=== PATIENT | male | born 2000 | race Caucasian/White ===

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

== ENCOUNTER 2019-05-20 00:58 | Emergency (ER) | payer BC ==
[2019-05-20] MEDS ORDERED: LIDOCAINE 1% W/EPI 1:100,000 MDV 50 ML VIAL ONE (01:37)
[2019-05-20] MEDS ORDERED: LIDOCAINE 1% MPF 5 ML VIAL ONE (01:57)
[2019-05-20] MEDS ORDERED: SMZ./TMP. 800/160 MG TABLET ONE (02:30)
--- NOTE | 2019-05-20 02:38 | ER ---
Nurse's Notes [facility] Name: Jevon Wilkins Age: 19 yrs Sex: Male : 2000 Arrival Date: 05/20/2019 Time: 01:01 Bed 27 Private MD: Diagnosis: Cutaneous abscess of head [any part, except face]-behind right ear Presentation: 05/20 01:10 Presenting complaint: Patient states: I have a bump behind my right ear that has been jb4 there for a couple months. I started noticing that it was becoming painful and getting larger over the past 2 days. Transition of care: patient was not received from another setting of care. Onset of symptoms was May 17, 2019. Risk Assessment: Do you want to hurt yourself or someone else? Patient reports no desire to harm self or others. Initial Sepsis Screen: Does the patient meet any 2 criteria? No. Patient's initial sepsis screen is negative. Does the patient have a suspected source of infection? No. Patient's initial sepsis screen is negative. Care prior to arrival: None. 01:10 Method Of Arrival: Ambulatory jb4 01:10 Acuity: KATIE 4 jb4 Historical: - Allergies: 01:12 No Known Allergies; jb4 - Home Meds: 01:12 None [Active]; jb4 - PMHx: 01:12 Depression; jb4 - PSHx: 01:12 None; jb4 - Immunization history:: Adult Immunizations up to date. - Social history:: Smoking status: Patient uses tobacco products, smokes one pack cigarettes per day. Patient uses alcohol, occasionally. - Ebola Screening: : No symptoms or risks identified at this time. Screenin:40 Abuse screen: Denies threats or abuse. Nutritional screening: No deficits noted. lc1 Tuberculosis screening: No symptoms or risk factors identified. Fall Risk None identified. Assessment: 02:40 General: Appears in no apparent distress. Behavior is calm, cooperative. Pain: lc1 Complains of pain in right ear. Neuro: No deficits noted. Cardiovascular: Denies chest pain, fatigue, shortness of breath. Respiratory: No deficits noted. GI: No signs and/or symptoms were reported involving the gastrointestinal system. : No signs and/or symptoms were reported regarding the genitourinary system. EENT: Reports area behind right ear with knot that has been there for a couple months, just recently started getting inflammed and painful . Derm: Abscess located on behind right ear. Musculoskeletal: No signs and/or symptoms reported regarding the musculoskeletal system. Vital Signs: 01:12 BP 149 / 79; Pulse 84; Resp 18; Temp 98.2(O); Pulse Ox 100% on R/A; Weight 68.04 kg jb4 (R); Height 5 ft. 8 in. (172.72 cm) (R); Pain 10/10; 01:45 BP 124 / 79; Pulse 76; Resp 18; Pulse Ox 100% on R/A; lc1 02:40 BP 149 / 83; Pulse 79; Resp 18; Pulse Ox 100% on R/A; lc1 01:12 Body Mass Index 22.81 (68.04 kg, 172.72 cm) jb4 ED Course: 01:01 Patient arrived in ED. cl3 01:05 Rubén Gaona PA is PHCP. cp 01:06 Jyadon Riggins MD is Attending Physician. cp 01:06 Robel Flores RN is Primary Nurse. tr5 01:11 Triage completed. jb4 01:12 Arm band placed on right wrist. jb4 02:00 Assist provider with I \T\ D: Performed by Rubén ATKINS Dressing with bandaid placed by phani Blandon. 02:40 Patient has correct armband on for positive identification. Bed in low position. Call 1 light in reach. 02:40 Patient did not have IV access during this emergency room visit. 1 Administered Medications: 01:50 Drug: Lidocaine (1 %) 1 application {Note: Admminstere by ER provider..} Volume: 5 ml; jb4 Route: Infiltration; 02:47 Follow up: Response: No adverse reaction 1 02:28 Not Given (Physician Discretion): Lidocaine-Epinephrine -1%: (1:100,000) 5 ml 20 ml jb4 Infiltration once; to bedside 02:34 Drug: Bactrim (160 mg-800 mg (DS) 1 tablet Route: PO; jb4 02:47 Follow up: Response: No adverse reaction 1 Outcome: 02:00 Discharged to home ambulatory. 1 02:00 Condition: good 02:00 Discharge instructions given to patient, Instructed on discharge instructions, medication usage, Demonstrated understanding of instructions, follow-up care, medications, wound care, Prescriptions given X 3. 02:37 Discharge ordered by MD. landaverde 02:51 Patient left the ED. lc1 Signatures: Jackie Payton Corey, PA PA cp Bryson, James RN RN jb4 Robel Flores RN RN tr5 Yuridia Raya cl3 Corrections: (The following items were deleted from the chart) 02:51 02:00 Assist provider with I \T\ D: Performed by Rubén ATKINS Dressing with bandaid lc1 placed by Barber jeronimo
--- NOTE | 2019-05-20 02:38 | EDPHYS ---
Physician Documentation [facility] Name: Jevon Wilkins Age: 19 yrs Sex: Male : 2000 Arrival Date: 05/20/2019 Time: 01:01 Bed 27 Private MD: ED Physician Jaydon Riggins HPI: 05/20 01:30 This 19 yrs old Male presents to ER via Ambulatory with complaints of Ear cp Pain. 01:30 The patient presents with pain, swelling, tenderness. The complaints affect the cp posterior aspect right ear. 01:30 Onset: The symptoms/episode began/occurred gradually, and became worse 2 day(s) ago. cp Historical: - Allergies: 01:12 No Known Allergies; jb4 - Home Meds: 01:12 None [Active]; jb4 - PMHx: 01:12 Depression; jb4 - PSHx: 01:12 None; jb4 - Immunization history:: Adult Immunizations up to date. - Social history:: Smoking status: Patient uses tobacco products, smokes one pack cigarettes per day. Patient uses alcohol, occasionally. - Ebola Screening: : No symptoms or risks identified at this time. ROS: 01:35 Constitutional: Negative for body aches, chills, fever, poor PO intake. cp 01:35 Eyes: Negative for injury, pain, redness, and discharge. cp 01:35 ENT: Positive for ear pain, Negative for drainage from ear(s), sore throat, difficulty swallowing, difficulty handling secretions. 01:35 Respiratory: Negative for cough. 01:35 Abdomen/GI: Negative for abdominal pain. 01:35 Skin: Positive for swelling, of the behind right ear. 01:35 Neuro: Negative for altered mental status, headache, weakness. 01:35 All other systems are negative. Exam: 01:45 Constitutional: The patient appears in no acute distress, alert, awake, well developed, cp well nourished. 01:45 Head/Face: Normocephalic, atraumatic. cp 01:45 Eyes: Periorbital structures: appear normal, Conjunctiva: normal, no exudate, no injection, Lids and lashes: appear normal, bilaterally. 01:45 ENT: External ear(s): abscess, that is small, of the behind right ear, erythema, of the pinna of right ear, Ear canal(s): are normal, clear, TM's: dullness, bilaterally, Examination of the other ear shows no obvious abnormality, Nose: is normal, Mouth: is normal, Posterior pharynx: is normal, airway is patent, no erythema, no exudate. 01:45 Neck: ROM/movement: is normal, is supple, without pain, no range of motions limitations, no nuchal rigidity. 01:45 Chest/axilla: Inspection: normal, Palpation: is normal, no crepitus, no tenderness. 01:45 Cardiovascular: Rate: normal. 01:45 Respiratory: the patient does not display signs of respiratory distress, Respirations: normal, no use of accessory muscles, no retractions, no splinting, no tachypnea. 01:45 Abdomen/GI: Inspection: abdomen appears normal. Vital Signs: 01:12 BP 149 / 79; Pulse 84; Resp 18; Temp 98.2(O); Pulse Ox 100% on R/A; Weight 68.04 kg jb4 (R); Height 5 ft. 8 in. (172.72 cm) (R); Pain 10/10; 01:45 BP 124 / 79; Pulse 76; Resp 18; Pulse Ox 100% on R/A; lc1 02:40 BP 149 / 83; Pulse 79; Resp 18; Pulse Ox 100% on R/A; lc1 01:12 Body Mass Index 22.81 (68.04 kg, 172.72 cm) jb4 Procedures: 02:30 I \T\ D: Incision and drainage was performed for an abscess of the behind right ear cp Prepped with Betadine, Incised with #11 blade. Drained moderate amount purulent fluid. Packed with iodoform gauze, Dressing: sterile 4x4 gauze, the patient tolerated the procedure well. MDM: 01:15 Patient medically screened. cp 02:00 Differential diagnosis: abscess, cellulitis. cp 02:36 Data reviewed: vital signs, nurses notes, and as a result, I will discharge patient. cp 02:36 Counseling: I had a detailed discussion with the patient and/or guardian regarding: the cp historical points, exam findings, and any diagnostic results supporting the discharge/admit diagnosis, the need for outpatient follow up, a family practitioner, to return to the emergency department if symptoms worsen or persist or if there are any questions or concerns that arise at home. Response to treatment: the patient's symptoms have markedly improved after treatment, and as a result, I will discharge patient. 05/20 01:29 Order name: I\T\D Setup; Complete Time: 01:50 cp 05/20 02:20 Order name: Wound dressing; Complete Time: 02:34 cp Administered Medications: 01:50 Drug: Lidocaine (1 %) 1 application {Note: Admminstere by ER provider..} Volume: 5 ml; jb4 Route: Infiltration; 02:47 Follow up: Response: No adverse reaction lc1 02:28 Not Given (Physician Discretion): Lidocaine-Epinephrine -1%: (1:100,000) 5 ml 20 ml jb4 Infiltration once; to bedside 02:34 Drug: Bactrim (160 mg-800 mg (DS) 1 tablet Route: PO; jb4 02:47 Follow up: Response: No adverse reaction lc1 Disposition: 03:22 Co-signature as Attending Physician, Jaydon Riggins MD. rn Disposition: 05/20/19 02:37 Discharged to Home. Impression: Cutaneous abscess of head [any part, except face] - behind right ear. - Condition is Stable. - Discharge Instructions: Skin Abscess, Incision and Drainage. - Prescriptions for Ibuprofen 800 mg Oral Tablet - take 1 tablet by ORAL route every 8 hours As needed take with food; 30 tablet. Tramadol 50 mg Oral Tablet - take 1 tablet by ORAL route every 8 hours as needed; 12 tablet. Bactrim DS 800- 160 mg Oral Tablet - take 1 tablet by ORAL route every 12 hours for 10 days; 20 tablet. - Medication Reconciliation Form, Thank You Letter, Antibiotic Education, Prescription Opioid Use form. - Follow up: Private Physician; When: 48 Hours; Reason: Wound Recheck. - Problem is new. - Symptoms have improved. Signatures: Jaydon Riggins MD MD rn Calhoun, Lisa lc1 Rubén Gaona PA PA cp Bryson, James, RN RN jb4 Corrections: (The following items were deleted from the chart) 02:51 02:37 05/20/2019 02:37 Discharged to Home. Impression: Cutaneous abscess of head [any lc1 part, except face] - behind right ear. Condition is Stable. Forms are Medication Reconciliation Form, Thank You Letter, Antibiotic Education, Prescription Opioid Use. Follow up: Private Physician; When: 48 Hours; Reason: Wound Recheck. Problem is new. Symptoms have improved. cp
[2019-05-20 02:56] VITALS: TEMP 98.2; O2SAT 100
[2019-05-20 02:58] VITALS: BP 149/83
== END 2019-05-20 02:51 | disposition home or self-care (01) ==
LOC: ER 00:58
PROC: 0J910ZZ Drainage of Face Subcutaneous Tissue and Fascia, Open Approach (ICD-10-PCS; principal; 2019-05-20)
DX: L02.811 Cutaneous abscess of head [any part, except face] (principal); F17.210 Nicotine dependence, cigarettes, uncomplicated
CPT/HCPCS: 99283

== ENCOUNTER 2019-06-28 00:44 | Emergency (ER) | payer BC ==
[2019-06-28] MEDS ORDERED: CLINDAMYCIN HCL 150 MG CAP ONE (01:16)
[2019-06-28] MEDS ORDERED: LIDOCAINE JELLY 2%- 5 ML TUBE ONE (01:16)
--- NOTE | 2019-06-28 02:01 | EDPHYS ---
Physician Documentation [facility] Name: Jevon Wilkins Age: 19 yrs Sex: Male : 2000 Arrival Date: 06/28/2019 Time: 00:47 Bed 14 Private MD: ED Physician Devendra Lopez HPI: 06/28 02:06 This 19 yrs old Male presents to ER via Ambulatory with complaints of Bump snw behind Ear. 02:06 Onset: The symptoms/episode began/occurred gradually. Associated signs and symptoms: snw Pertinent positives: tenderness. The patient has experienced a previous episode. It is unknown whether or not the patient has recently seen a physician. Historical: - Allergies: 00:57 No Known Allergies; ss - Home Meds: 00:57 None [Active]; ss - PMHx: 00:57 Depression; ss - PSHx: 00:57 None; ss - Immunization history:: Adult Immunizations up to date. - Social history:: Smoking status: Patient uses tobacco products, smokes one pack cigarettes per day. - Ebola Screening: : Patient denies exposure to infectious person Patient denies travel to an Ebola-affected area in the 21 days before illness onset. ROS: 02:03 Constitutional: Negative for fever, chills, and weight loss, Eyes: Negative for injury, snw pain, redness, and discharge, Neck: Negative for injury, pain, and swelling, Cardiovascular: Negative for chest pain, palpitations, and edema, Respiratory: Negative for shortness of breath, cough, wheezing, and pleuritic chest pain, Abdomen/GI: Negative for abdominal pain, nausea, vomiting, diarrhea, and constipation, Back: Negative for injury and pain, : Negative for injury, bleeding, discharge, and swelling, MS/Extremity: Negative for injury and deformity, Skin: Negative for injury, rash, and discoloration, Neuro: Negative for headache, weakness, numbness, tingling, and seizure, Psych: Negative for depression, anxiety, suicide ideation, homicidal ideation, and hallucinations. 02:03 ENT: Positive for postauricular swelling to right post auricular area - I\T\D last month. Exam: 02:01 Constitutional: This is a well developed, well nourished patient who is awake, alert, snw and in no acute distress. Head/Face: Normocephalic, atraumatic. Eyes: Pupils equal round and reactive to light, extra-ocular motions intact. Lids and lashes normal. Conjunctiva and sclera are non-icteric and not injected. Cornea within normal limits. Periorbital areas with no swelling, redness, or edema. Neck: Trachea midline, no thyromegaly or masses palpated, and no cervical lymphadenopathy. Supple, full range of motion without nuchal rigidity, or vertebral point tenderness. No Meningismus. Chest/axilla: Normal chest wall appearance and motion. Nontender with no deformity. No lesions are appreciated. Cardiovascular: Regular rate and rhythm with a normal S1 and S2. No gallops, murmurs, or rubs. Normal PMI, no JVD. No pulse deficits. Respiratory: Lungs have equal breath sounds bilaterally, clear to auscultation and percussion. No rales, rhonchi or wheezes noted. No increased work of breathing, no retractions or nasal flaring. Abdomen/GI: Soft, non-tender, with normal bowel sounds. No distension or tympany. No guarding or rebound. No evidence of tenderness throughout. Back: No spinal tenderness. No costovertebral tenderness. Full range of motion. Skin: Warm, dry with normal turgor. Normal color with no rashes, no lesions, and no evidence of cellulitis. MS/ Extremity: Pulses equal, no cyanosis. Neurovascular intact. Full, normal range of motion. Neuro: Awake and alert, GCS 15, oriented to person, place, time, and situation. Cranial nerves II-XII grossly intact. Motor strength 5/5 in all extremities. Sensory grossly intact. Cerebellar exam normal. Normal gait. Psych: Awake, alert, with orientation to person, place and time. Behavior, mood, and affect are within normal limits. 02:01 ENT: External ear(s): pain with movement, swelling, that is moderate, right postauricular area, TM's: are normal, Nose: is normal, Mouth: is normal. Vital Signs: 00:57 BP 133 / 77; Pulse 77; Resp 16; Temp 97.8(O); Pulse Ox 100% on R/A; Weight 68.04 kg; ss Height 5 ft. 9 in. (175.26 cm); Pain 10/10; 02:23 BP 112 / 78; Pulse 86; Resp 16; Pulse Ox 97% on R/A; jb4 00:57 Body Mass Index 22.15 (68.04 kg, 175.26 cm) ss MDM: 00:59 Patient medically screened. snw 01:59 Data reviewed: vital signs, nurses notes. Data interpreted: Pulse oximetry: on room air snw is 100 %. Interpretation: normal. Counseling: I had a detailed discussion with the patient and/or guardian regarding: the historical points, exam findings, and any diagnostic results supporting the discharge/admit diagnosis, the presence of at least one elevated blood pressure reading (>120/80) during this emergency department visit, the need for outpatient follow up, to return to the emergency department if symptoms worsen or persist or if there are any questions or concerns that arise at home. Response to treatment: the patient's symptoms have markedly improved after treatment. Special discussion: Based on the history and exam findings, there is no indication for further emergent testing or inpatient evaluation. I discussed with the patient/guardian the need to see the ENT specialist for further evaluation of the symptoms. I discussed with the patient/guardian the need to see the primary care provider for further evaluation of the symptoms. Administered Medications: 01:20 Drug: Clindamycin 300 mg Route: PO; jb4 02:11 Follow up: Response: No adverse reaction jb4 01:21 Drug: Lidocaine Gel 2 % 1 application Route: Mucous Membrane; jb4 02:12 Follow up: Response: No adverse reaction jb4 02:22 Drug: [place] 5 mg-325 mg 1 tabs {Note: Rass score of 0.} Route: PO; jb4 02:22 Follow up: Response: Medication administered at discharge. jb4 Disposition: 06:35 Co-signature as Attending Physician, Devendra Lopez MD I agree with the assessment and tw4 plan of care. Disposition: 06/28/19 01:59 Discharged to Home. Impression: Cutaneous abscess of other sites - post auricular area. - Condition is Stable. - Discharge Instructions: Skin Abscess, Heat Therapy. - Prescriptions for Clindamycin HCl 300 mg Oral Capsule - take 1 capsule by ORAL route every 6 hours for 10 days; 40 capsule. Mobic 7.5 mg Oral Tablet - take 1 tablet by ORAL route once daily take with food; 20 tablet. - Medication Reconciliation Form, Thank You Letter, Antibiotic Education, Prescription Opioid Use form. - Follow up: Private Physician; When: 2 - 3 days; Reason: Recheck today's complaints, Continuance of care, Re-evaluation by your physician. Follow up: Emergency Department; When: As needed; Reason: Worsening of condition. Signatures: Patt Roper, LAURENCE-C DIE OPERATOR-Csnw Zoey Dodson RN RN ss Ge Tripp RN RN jb4 Devendra Lopez MD MD tw4 Corrections: (The following items were deleted from the chart) 02:25 01:59 06/28/2019 01:59 Discharged to Home. Impression: Cutaneous abscess of other sites jb4 - post auricular area. Condition is Stable. Discharge Instructions: Skin Abscess, Heat Therapy. Prescriptions for Clindamycin HCl 300 mg Oral Capsule - take 1 capsule by ORAL route every 6 hours for 10 days; 40 capsule, Mobic 7.5 mg Oral Tablet - take 1 tablet by ORAL route once daily take with food; 20 tablet. and Forms are Medication Reconciliation Form, Thank You Letter, Antibiotic Education, Prescription Opioid Use. Follow up: Private Physician; When: 2 - 3 days; Reason: Recheck today's complaints, Continuance of care, Re-evaluation by your physician. Follow up: Emergency Department; When: As needed; Reason: Worsening of condition. snw
--- NOTE | 2019-06-28 02:01 | ER ---
Nurse's Notes [facility] Name: Jevon Wilkins Age: 19 yrs Sex: Male : 2000 Arrival Date: 06/28/2019 Time: 00:47 Bed 14 Private MD: Diagnosis: Cutaneous abscess of other sites-post auricular area Presentation: 06/28 00:54 Presenting complaint: Patient states: bump behind R ear x 2 days. Patient reports he ss came to ER a month ago for the same thing, had the abscess drained, but it came back. Denies fever. Transition of care: patient was not received from another setting of care. Onset of symptoms was June 26, 2019. Risk Assessment: Do you want to hurt yourself or someone else? Patient reports no desire to harm self or others. Initial Sepsis Screen: Does the patient meet any 2 criteria? No. Patient's initial sepsis screen is negative. Does the patient have a suspected source of infection? Yes: Skin breakdown/wound. Care prior to arrival: None. 00:54 Method Of Arrival: Ambulatory ss 00:54 Acuity: KATIE 4 ss Historical: - Allergies: 00:57 No Known Allergies; ss - Home Meds: 00:57 None [Active]; ss - PMHx: 00:57 Depression; ss - PSHx: 00:57 None; ss - Immunization history:: Adult Immunizations up to date. - Social history:: Smoking status: Patient uses tobacco products, smokes one pack cigarettes per day. - Ebola Screening: : Patient denies exposure to infectious person Patient denies travel to an Ebola-affected area in the 21 days before illness onset. Screenin:59 Abuse screen: Denies threats or abuse. Denies injuries from another. Nutritional ss screening: No deficits noted. Tuberculosis screening: Never had TB. Fall Risk None identified. Assessment: 00:58 General: Appears in no apparent distress. comfortable, Behavior is calm, cooperative, ss Denies fever, feeling ill, fatigue, chills. Pain: Complains of pain in right mastoid area Pain currently is 10 out of 10 on a pain scale. Quality of pain is described as tender, Pain began 2-3 days ago. Is continuous, Aggravated by palpation. Neuro: Level of Consciousness is awake, alert, obeys commands, Oriented to person, place, time, situation. Cardiovascular: Capillary refill < 3 seconds is brisk in bilateral fingers. Respiratory: Airway is patent Respiratory effort is even, unlabored, Respiratory pattern is regular, symmetrical. GI: No signs and/or symptoms were reported involving the gastrointestinal system. : No signs and/or symptoms were reported regarding the genitourinary system. EENT: Oral mucosa is moist. Derm: Skin is intact, is healthy with good turgor, Skin is dry, Skin is pink, warm \T\ dry. normal, Abscess located on behind R ear is nickel sized, has no drainage, is raised. Musculoskeletal: Circulation, motion, and sensation intact. Range of motion: intact in all extremities. 02:23 Reassessment: Patient appears in no apparent distress at this time. Patient and/or jb4 family updated on plan of care and expected duration. Pain level reassessed. Patient is alert, oriented x 3, equal unlabored respirations, skin warm/dry/pink. PT reports not having a PCP, given a list of PCP's in the area. Verbalized understanding of d/c and follow up instructions, ambulated out of the ED with significant other with steady gait. Vital Signs: 00:57 BP 133 / 77; Pulse 77; Resp 16; Temp 97.8(O); Pulse Ox 100% on R/A; Weight 68.04 kg; ss Height 5 ft. 9 in. (175.26 cm); Pain 10/10; 02:23 BP 112 / 78; Pulse 86; Resp 16; Pulse Ox 97% on R/A; jb4 00:57 Body Mass Index 22.15 (68.04 kg, 175.26 cm) ED Course: 00:47 Patient arrived in ED. jg7 00:54 Zoey Dodson, LAMONT is Primary Nurse. ss 00:55 Triage completed. ss 00:57 aPtt Roper FNP-C is PHCP. snw 00:57 Devendra Lopez MD is Attending Physician. snw 00:57 Arm band placed on right wrist. ss 00:59 Patient has correct armband on for positive identification. Bed in low position. Call light in reach. 02:23 No provider procedures requiring assistance completed. Patient did not have IV access jb4 during this emergency room visit. Administered Medications: 01:20 Drug: Clindamycin 300 mg Route: PO; jb4 02:11 Follow up: Response: No adverse reaction jb4 01:21 Drug: Lidocaine Gel 2 % 1 application Route: Mucous Membrane; jb4 02:12 Follow up: Response: No adverse reaction jb4 02:22 Drug: [place] 5 mg-325 mg 1 tabs {Note: Rass score of 0.} Route: PO; jb4 02:22 Follow up: Response: Medication administered at discharge. jb4 Outcome: 01:59 Discharge ordered by . ron 02:23 Discharged to home ambulatory, with significant other. jb4 02:23 Condition: stable 02:23 Discharge instructions given to patient, significant other, Instructed on discharge instructions, follow up and referral plans. medication usage, Demonstrated understanding of instructions, follow-up care, medications, Prescriptions given X 2. 02:25 Patient left the ED. jb4 Signatures: Patt Roper, GENERAL MANAGER LAND DEPARTMENT-C GENERAL MANAGER LAND DEPARTMENT-Csnw Zoey Dodson RN RN ss Bryson, James, RN RN jb4 Milena Bonds jg7
[2019-06-28] MEDS ORDERED: HYDROCODONE/APAP 5/325 MG TAB ONE (02:16)
[2019-06-28 02:30] VITALS: TEMP 97.8
[2019-06-28 02:31] VITALS: BP 112/78; O2SAT 97
== END 2019-06-28 02:25 | disposition home or self-care (01) ==
LOC: ER 00:44
DX: H60.01 Abscess of right external ear (principal); F17.210 Nicotine dependence, cigarettes, uncomplicated
CPT/HCPCS: 99283

== ENCOUNTER 2019-09-24 06:00 | Emergency (ER) | payer BC ==
[2019-09-24] MEDS ORDERED: TETANUS & DIPHTHERIA TOX,ADULT 0.5 ML VIAL ONE (06:18)
[2019-09-24] MEDS ORDERED: LIDOCAINE 1% MPF 5 ML VIAL ONE (06:19)
--- NOTE | 2019-09-24 07:19 | RAD REPORT ---
EXAM DESCRIPTION: RAD - Hand Right 3 View - 09/24/2019 7:10 am CLINICAL HISTORY: Right hand pain status post injury FINDINGS: No fracture or dislocation is seen. Laceration involves the first web space and soft tissues adjacent to the second proximal phalanx.. A bandage has been placed which obscures detection of foreign body.
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
[2019-09-24 07:48] VITALS: BP 145/71; TEMP 98.4; O2SAT 99
== END 2019-09-24 07:42 | disposition home or self-care (01) ==
LOC: ER 06:00
PROC: 0JQJ0ZZ Repair Right Hand Subcutaneous Tissue and Fascia, Open Approach (ICD-10-PCS; principal; 2019-09-24)
DX: S61.411A Laceration without foreign body of right hand, initial encounter (principal); Y04.2XXA Assault by strike against or bumped into by another person, initial encounter; Y93.89 Activity, other specified; Y92.9 Unspecified place or not applicable
CPT/HCPCS: 90714; 99284

== ENCOUNTER 2019-12-12 17:43 | Emergency (ER) | payer BC ==
[2019-12-12 18:27] LABS: Absolute Lymphocytes (CBC) 1.4 K/uL (0.7-4.9); Basophils % 0.3 % (0-1.3); Hematocrit 50.5 % (39.6-49.0); Lymphocytes % 11.6 % (15.3-44.8); MPV 10.4 fL (7.6-11.3); RBC Red Blood Cell Count 5.74 M/uL (4.33-5.43)
[2019-12-12] MEDS ORDERED: NA CHLORIDE 0.9% 1,000 ML ONE (18:28)
[2019-12-12 18:34] LABS: Protime INR 1.03
[2019-12-12 19:00] LABS: ALT/SGPT 46 U/L (12-78); AST/SGOT 26 U/L (15-37); Albumin 4.4 g/dL (3.4-5.0); Alkaline Phosphatase 99 U/L (45-117); BUN Blood Urea Nitrogen 11 mg/dL (7-18); Bicarbonate 26 mmol/L (21-32); Bilirubin Direct 0.2 mg/dL (0-0.2); Glucose Level 93 mg/dL (74-106); Potassium 3.9 mmol/L (3.5-5.1); Protein, Total 7.8 g/dL (6.4-8.2); Sodium Level 140 mmol/L (136-145)
[2019-12-12 19:20] LABS: Urine Blood NEGATIVE (NEG); Urine Glucose NEGATIVE (NEG); Urine Protein 2+ (NEG); Urine pH 8.5 (5.0-7.0)
[2019-12-12 19:37] LABS: Barbiturates NEGATIVE (NEGATIVE); Benzodiazepines NEGATIVE (NEGATIVE); Cocaine NEGATIVE (NEGATIVE); METHAMPHETAM NEGATIVE (NEGATIVE); Methadone NEGATIVE (NEGATIVE); Opiates NEGATIVE (NEGATIVE); Phencyclidine NEGATIVE (NEGATIVE); THC Cannibis POSITIVE (NEGATIVE)
--- NOTE | 2019-12-12 19:57 | ER ---
Nurse's Notes [facility] Name: Jevon Wilkins Age: 19 yrs Sex: Male : 2000 Arrival Date: 12/12/2019 Time: 17:48 Bed 16 Private MD: Diagnosis: Vomiting, unspecified;Cannabis abuse Presentation: 12/11 17:59 Chief complaint: Patient states: Awoke with N/V/D today. Unable to hold down fluids. ll1 States this doesn't feel like his normal hang overs. Coronavirus screen: Proceed with normal triage. Patient denies a cough. Patient denies shortness of breath or difficulty breathing. Patient denies measured and/or subjective temperature greater than 100.4F prior to today's visit. Patient denies travel on a cruise ship or to a country the [facility] currently lists as an affected area. Patient denies contact with known and/or suspected case of COVID-19. Ebola Screen: Patient denies travel to an Ebola-affected area in the 21 days before illness onset. Initial Sepsis Screen: Does the patient meet any 2 criteria? No. Patient's initial sepsis screen is negative. Does the patient have a suspected source of infection? No. Patient's initial sepsis screen is negative. Risk Assessment: Do you want to hurt yourself or someone else? Patient reports no desire to harm self or others. Onset of symptoms was December 12, 2019. 17:59 Method Of Arrival: Ambulatory [facility] 17:59 Acuity: KATIE 3 ll1 Historical: - Allergies: 18:02 No Known Allergies; ll1 - PMHx: 18:02 Depression; ll1 - PSHx: 18:02 None; ll1 - Immunization history:: Adult Immunizations unknown. - Social history:: Smoking status: Patient reports the use of cigarette tobacco products, smokes one pack cigarettes per day. Patient uses alcohol, only on a social basis. street drugs, alprazolam. Screenin:26 Abuse screen: Denies threats or abuse. Denies injuries from another. Nutritional jl7 screening: No deficits noted. Tuberculosis screening: No symptoms or risk factors identified. Fall Risk IV access (20 points). Total [place] Fall Scale indicates No Risk (0-24 pts). Assessment: 18:10 General: Appears in no apparent distress. uncomfortable, Behavior is calm, cooperative, jl7 appropriate for age. Pain: Denies pain. Neuro: Level of Consciousness is awake, alert, obeys commands, Oriented to person, place, time, situation. Cardiovascular: Patient's skin is warm and dry. Respiratory: Airway is patent Respiratory effort is even, unlabored, Respiratory pattern is regular, symmetrical. GI: Abdomen is flat, non-distended, Reports N/V this morning, symptoms have resolved. Derm: Skin is pink, warm \T\ dry. 18:27 Reassessment: Pt unable to provide urine sample at this time, VO for 1000 mL NS IV. jl7 19:15 Reassessment: Patient appears in no apparent distress at this time. Patient and/or wh family updated on plan of care and expected duration. Pain level reassessed. Patient is alert, oriented x 3, equal unlabored respirations, skin warm/dry/pink. 20:00 Reassessment: Patient appears in no apparent distress at this time. Patient and/or vc family updated on plan of care and expected duration. Pain level reassessed. Patient is alert, oriented x 3, equal unlabored respirations, skin warm/dry/pink. Patient states feeling better. Patient states symptoms have improved. Vital Signs: 17:59 BP 149 / 63; Pulse 83; Resp 17; Temp 97.8; Pulse Ox 98% ; Pain 0/10; ll1 19:30 BP 140 / 62; Pulse 70; Resp 18; Pulse Ox 98% on R/A; vc ED Course: 17:48 Patient arrived in ED. am2 17:54 Kathleen Wilder RN is Primary Nurse. jl7 17:56 Robbin Marcus NP is PHCP. pm1 17:56 Jaydon Riggins MD is Attending Physician. pm1 18:01 Triage completed. ll1 18:03 Arm band placed on Patient placed in an exam room, on a stretcher. ll1 18:16 Initial lab(s) drawn, by me, sent to lab. Inserted saline lock: 20 gauge in left jp3 antecubital area, using aseptic technique. Blood collected. Patient maintains SpO2 saturation greater than 95% on room air. 18:26 Patient has correct armband on for positive identification. Bed in low position. Call jl7 light in reach. Side rails up X 1. Pulse ox on. NIBP on. 18:32 EKG done, by ED staff, reviewed by Robbin Marcus BI SPECIALIST. jp3 19:10 Urine collected: clean catch specimen, clear, shira colored, Legal drug screen obtained jp3 per protocol. 20:17 No provider procedures requiring assistance completed. IV discontinued, intact, vc bleeding controlled, No redness/swelling at site. Pressure dressing applied. Administered Medications: 18:30 Drug: NS 0.9% 1000 ml Route: IV; Rate: 1 bolus; Site: left antecubital; jl7 19:30 Follow up: IV Status: Completed infusion; IV Intake: 1000ml vc Intake: 19:30 IV: 1000ml; Total: 1000ml. vc Outcome: 19:57 Discharge ordered by MD. pm1 20:17 Discharged to home ambulatory. vc 20:17 Condition: improved 20:17 Discharge instructions given to patient, Instructed on discharge instructions, follow up and referral plans. Demonstrated understanding of instructions, follow-up care, medications, Prescriptions given X 1. 20:18 Patient left the ED. vc Signatures: Robbin Marcus, INE[employer] BI SPECIALIST pm1 Kathleen Wilder RN RN jl7 Delilah Purvis amShirley Austin Jacob jp3 Holli Blackman RN RN vc Lewis, Lynsay, RN RN ll1
--- NOTE | 2019-12-12 19:57 | EDPHYS ---
Physician Documentation [facility] Name: Jevon Wilkins Age: 19 yrs Sex: Male : 2000 Arrival Date: 12/12/2019 Time: 17:48 Bed 16 Private MD: ED Physician Jaydon Riggins HPI: 12/11 18:09 This 19 yrs old Male presents to ER via Ambulatory with complaints of pm1 Vomiting, shaking. 18:09 The patient presents to the emergency department with nausea, vomiting. Onset: The pm1 symptoms/episode began/occurred this morning. Possible causes: alcohol or the possible "fake xanax" that he took yesterday. The symptoms are aggravated by nothing. The symptoms are alleviated by nothing. Associated signs and symptoms: Pertinent negatives: abdominal pain, diarrhea, dysuria, fever. Severity of symptoms: in the emergency department the symptoms are unchanged. The patient has not experienced similar symptoms in the past. It is unknown whether or not the patient has recently seen a physician. Patient was drinking alcohol, 10-12 beers last night, and took some possible "fake xanax." This morning he started vomiting . Historical: - Allergies: 18:02 No Known Allergies; ll1 - PMHx: 18:02 Depression; ll1 - PSHx: 18:02 None; ll1 - Immunization history:: Adult Immunizations unknown. - Social history:: Smoking status: Patient reports the use of cigarette tobacco products, smokes one pack cigarettes per day. Patient uses alcohol, only on a social basis. street drugs, alprazolam. ROS: 18:10 Constitutional: Negative for fever, chills, and weight loss, Cardiovascular: Negative pm1 for chest pain, palpitations, and edema, Respiratory: Negative for shortness of breath, cough, wheezing, and pleuritic chest pain. 18:10 Eyes: Negative for injury, pain, redness, and discharge, ENT: Negative for injury, pain, and discharge, Neck: Negative for injury, pain, and swelling, Back: Negative for injury and pain, MS/Extremity: Negative for injury and deformity, Skin: Negative for injury, rash, and discoloration, Neuro: Negative for headache, weakness, numbness, tingling, and seizure. 18:10 Abdomen/GI: Positive for nausea and vomiting, Negative for abdominal pain, diarrhea, constipation. Exam: 18:10 Constitutional: This is a well developed, well nourished patient who is awake, alert, pm1 and in no acute distress. Head/Face: Normocephalic, atraumatic. Neck: Trachea midline, no thyromegaly or masses palpated, and no cervical lymphadenopathy. Supple, full range of motion without nuchal rigidity, or vertebral point tenderness. No Meningismus. Chest/axilla: Normal chest wall appearance and motion. Nontender with no deformity. No lesions are appreciated. 18:10 Back: No spinal tenderness. No costovertebral tenderness. Full range of motion. Skin: Warm, dry with normal turgor. Normal color with no rashes, no lesions, and no evidence of cellulitis. MS/ Extremity: Pulses equal, no cyanosis. Neurovascular intact. Full, normal range of motion. 18:10 Cardiovascular: Exam negative for acute changes, Rate: normal, Rhythm: regular, Pulses: no pulse deficits are appreciated, Edema: is not appreciated. 18:10 Respiratory: Exam negative for acute changes, respiratory distress, shortness of breath, wheezing. 18:10 Abdomen/GI: Exam negative for acute changes, Inspection: abdomen appears normal, Palpation: abdomen is soft and non-tender, in all quadrants, mass, is not appreciated, rebound tenderness, is not appreciated. Vital Signs: 17:59 BP 149 / 63; Pulse 83; Resp 17; Temp 97.8; Pulse Ox 98% ; Pain 0/10; ll1 19:30 BP 140 / 62; Pulse 70; Resp 18; Pulse Ox 98% on R/A; vc MDM: 17:59 Patient medically screened. pm1 19:56 Data reviewed: vital signs. Data interpreted: Pulse oximetry: on room air is 98 %. pm1 Interpretation: normal. 19:56 Counseling: I had a detailed discussion with the patient and/or guardian regarding: the pm1 historical points, exam findings, and any diagnostic results supporting the discharge/admit diagnosis, lab results, the need for outpatient follow up, to return to the emergency department if symptoms worsen or persist or if there are any questions or concerns that arise at home. 12/11 17:59 Order name: Acetaminophen; Complete Time: 19:12 pm1 12/11 17:59 Order name: Basic Metabolic Panel; Complete Time: 19:12 pm1 12/11 17:59 Order name: CBC with Diff; Complete Time: 18:46 pm1 12/11 17:59 Order name: ETOH Level; Complete Time: 19:12 pm1 12/11 17:59 Order name: Hepatic Function; Complete Time: 19:12 pm1 12/11 17:59 Order name: PT-INR; Complete Time: 18:46 pm1 12/11 17:59 Order name: Ptt, Activated; Complete Time: 18:46 pm1 12/11 17:59 Order name: Salicylate; Complete Time: 19:12 pm1 12/11 17:59 Order name: Urine Drug Screen; Complete Time: 19:42 pm1 12/11 17:59 Order name: EKG; Complete Time: 18:01 pm1 12/11 17:59 Order name: EKG - Nurse/Tech; Complete Time: 18:24 pm1 12/11 17:59 Order name: IV Saline Lock; Complete Time: 18:24 pm1 12/11 19:15 Order name: Urine Dipstick--Ancillary (enter results); Complete Time: 19:22 nd 12/11 17:59 Order name: Labs collected and sent; Complete Time: 18:24 pm1 12/11 17:59 Order name: Urine Dipstick-Ancillary (obtain specimen); Complete Time: 18:24 pm1 Administered Medications: 18:30 Drug: NS 0.9% 1000 ml Route: IV; Rate: 1 bolus; Site: left antecubital; jl7 19:30 Follow up: IV Status: Completed infusion; IV Intake: 1000ml vc Disposition: 12/12/19 19:57 Discharged to Home. Impression: Vomiting, unspecified, Cannabis abuse. - Condition is Stable. - Discharge Instructions: Cannabis Use Disorder, Nausea and Vomiting, Adult. - Prescriptions for Zofran ODT 4 mg Oral tablet,disintegrating - take 1 tablet by ORAL route every 8 hours As needed; 20 tablet. - Medication Reconciliation Form, Thank You Letter, Antibiotic Education, Prescription Opioid Use form. - Follow up: Emergency Department; When: As needed; Reason: Worsening of condition. Follow up: Private Physician; When: 2 - 3 days; Reason: Recheck today's complaints, Continuance of care, Re-evaluation by your physician. - Problem is new. - Symptoms have improved. Signatures: Dispatcher [employer] EDMS Robbin Marcus NP NURSE ORTHOPAEDIC pm1 Kathleen Wilder RN RN jl7 Holli Blackman RN RN vc Farzad Raya RN RN ll1 Corrections: (The following items were deleted from the chart) 20:18 19:57 12/12/2019 19:57 Discharged to Home. Impression: Vomiting, unspecified; Cannabis vc abuse. Condition is Stable. Forms are Medication Reconciliation Form, Thank You Letter, Antibiotic Education, Prescription Opioid Use. Follow up: Emergency Department; When: As needed; Reason: Worsening of condition. Follow up: Private Physician; When: 2 - 3 days; Reason: Recheck today's complaints, Continuance of care, Re-evaluation by your physician. Problem is new. Symptoms have improved. pm1
[2019-12-12 20:36] VITALS: TEMP 97.8; O2SAT 98
[2019-12-12 20:37] VITALS: BP 140/62
--- NOTE | 2019-12-13 11:36 | EKG ---
Test Date: 2019-12-12 Test Time: 18:31:38 Acds Block 1 Operator: SHAZIA MEASUREMENT RESULTS: Intervals: Rate: 58 WY: 96 QRSD: 98 QT: 394 QTc: 386 Viola: P: 22 WY: 96 QRS: 82 T: 67 INTERPRETIVE STATEMENTS: Sinus bradycardia with sinus arrhythmia with short WY Incomplete right bundle branch block Borderline ECG Compared to ECG 01/18/2018 17:12:29 Short WY interval now present Sinus rhythm no longer present Electronically Signed On 12-13-19 11:34:58 CDT by Ferdinand Nguyen
== END 2019-12-12 20:18 | disposition home or self-care (01) ==
LOC: ER 17:43
DX: F12.10 Cannabis abuse, uncomplicated (principal); F17.210 Nicotine dependence, cigarettes, uncomplicated
CPT/HCPCS: 93005; 85025; 80048; 36415; 80320; 80329 ×2; 85610; 80076; 80307 ×8; 85730; 81003; J7030; 96360; 99284

== ENCOUNTER 2019-12-28 18:36 | Emergency (ER) | payer BC ==
[2019-12-28] MEDS ORDERED: HYDROCODONE/APAP 7.5/325 MG TAB ONE (19:30)
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
[2019-12-28] MEDS ORDERED: KETOROLAC 30 MG/ML INJ ONE (21:16)
[2019-12-28 21:22] VITALS: BP 140/84; O2SAT 100
== END 2019-12-28 21:15 | disposition home or self-care (01) ==
LOC: ER 18:36
DX: S02.401A Maxillary fracture, unspecified side, initial encounter for closed fracture (principal); S02.2XXA Fracture of nasal bones, initial encounter for closed fracture; S06.0X0A Concussion without loss of consciousness, initial encounter; S93.402A Sprain of unspecified ligament of left ankle, initial encounter; Y04.2XXA Assault by strike against or bumped into by another person, initial encounter; Y93.89 Activity, other specified; Y92.512 Supermarket, store or market as the place of occurrence of the external cause
CPT/HCPCS: 70450; 70486; 72125; 76377; 96372; 99284

== ENCOUNTER 2020-04-27 18:29 | Emergency (ER) | payer BC, SELFPAY ==
[2020-04-27] MEDS ORDERED: FAMOTIDINE 20 MG/2 ML VIAL IV ONE (19:49)
[2020-04-27] MEDS ORDERED: NA CHLORIDE 0.9% 1,000 ML ONE (19:49)
[2020-04-27] MEDS ORDERED: ONDANSETRON 4 MG/2 ML VIAL ONE (19:49)
[2020-04-27 19:56] LABS: Absolute Lymphocytes (CBC) 1.2 K/uL (0.7-4.9); Basophils % 0.1 % (0-1.3); Hematocrit 46.9 % (39.6-49.0); Lymphocytes % 8.1 % (15.3-44.8); MPV 10.7 fL (7.6-11.3); RBC Red Blood Cell Count 5.41 M/uL (4.33-5.43)
--- NOTE | 2020-04-27 20:00 | RAD REPORT ---
EXAM DESCRIPTION: RAD - Chest Single View - 04/27/2020 7:53 pm CLINICAL HISTORY: SOB Chest pain. COMPARISON: Chest Single View dated 07/29/2017 FINDINGS: Portable technique limits examination quality. The lungs are grossly clear. The heart is normal in size. No displaced fractures. IMPRESSION: No acute intrathoracic process suspected.
[2020-04-27] MEDS ORDERED: LIDOCAINE VISCOUS 2% SOLN 15 ML UDC ONE (20:02)
[2020-04-27] MEDS ORDERED: MAGNE/ALUM HYDROXD 30 ML UCUP ONE (20:02)
[2020-04-27 20:11] LABS: ALT/SGPT 49 U/L (12-78); AST/SGOT 20 U/L (15-37); Albumin 4.6 g/dL (3.4-5.0); Alkaline Phosphatase 96 U/L (45-117); BUN Blood Urea Nitrogen 10 mg/dL (7-18); Bicarbonate 19 mmol/L (21-32); Bilirubin Direct 0.2 mg/dL (0-0.2); Bilirubin Total 1.1 mg/dL (0.2-1.0); Glucose Level 94 mg/dL (74-106); Lipase 76 U/L (73-393); Potassium 3.6 mmol/L (3.5-5.1); Protein, Total 7.8 g/dL (6.4-8.2); Sodium Level 139 mmol/L (136-145); Troponin (Emerg Dept Use Only) < 0.02 ng/mL (0.0-0.045)
--- NOTE | 2020-04-27 20:52 | RAD REPORT ---
EXAM DESCRIPTION: CT - Chest For Pe Angio - 04/27/2020 8:43 pm CLINICAL HISTORY: Chest pain. SOB COMPARISON: No comparisons TECHNIQUE: CT angiogram of the pulmonary arteries was performed with MIP. All CT scans are performed using dose optimization technique as appropriate and may include automated exposure control or mA/KV adjustment according to patient size. FINDINGS: No evidence of pulmonary thromboembolism. No acute aortic finding demonstrated. The lungs are clear. No significant pericardial or pleural fluid. No concerning bony finding. IMPRESSION: No evidence of pulmonary thromboembolism. No acute lung findings.
--- NOTE | 2020-04-27 20:54 | RAD REPORT ---
EXAM DESCRIPTION: CTAbdomen Pelvis W Contrast - 04/27/2020 8:43 pm CLINICAL HISTORY: Abdominal pain. ABD PAIN COMPARISON: No comparisons TECHNIQUE: Biphasic CT imaging of the abdomen and pelvis was performed with 100 ml non-ionic IV cont rast. All CT scans are performed using dose optimization technique as appropriate and may include automated exposure control or mA/KV adjustment according to patient size. FINDINGS: The lung bases are clear. The liver, spleen, pancreas, adrenal glands and kidneys are within normal limits. No bowel obstruction, free air, free fluid or abscess. The appendix is normal. No evidence of signi ficant lymphadenopathy. No suspicious bony findings. IMPRESSION: No acute intra-abdominal or pelvic finding.
[2020-04-27 21:29] LABS: Urine Blood TRACE (NEG); Urine Glucose NEGATIVE (NEG); Urine Protein 1+ (NEG); Urine Specific Gravity 1.025 (1.005-1.030); Urine pH 6.5 (5.0-7.0)
[2020-04-27 21:44] LABS: Barbiturates NEGATIVE (NEGATIVE); Benzodiazepines NEGATIVE (NEGATIVE); Cocaine NEGATIVE (NEGATIVE); METHAMPHETAM NEGATIVE (NEGATIVE); Methadone NEGATIVE (NEGATIVE); Opiates NEGATIVE (NEGATIVE); Phencyclidine NEGATIVE (NEGATIVE); THC Cannibis POSITIVE (NEGATIVE)
--- NOTE | 2020-04-27 22:12 | ER ---
Nurse's Notes [facility] Name: Jevon Wilkins Age: 19 yrs Sex: Male : 2000 Arrival Date: 04/27/2020 Time: 18:31 Bed 7 Private MD: Diagnosis: Dyspnea;Abdominal Pain;Vomiting;Dehydration Presentation: 04/27 18:48 Chief complaint: Patient states: SOB that started this morning after vomiting, pt is sv hyperventilating at this time, hx of anxiety. Coronavirus screen: Client denies travel out of the [place] in the last 14 days. At this time, the client does not indicate any symptoms associated with coronavirus-19. Ebola Screen: No symptoms or risks identified at this time. Risk Assessment: Do you want to hurt yourself or someone else? Patient reports no desire to harm self or others. Onset of symptoms was April 27, 2020. 18:48 Method Of Arrival: Ambulatory sv 18:48 Acuity: KATIE 3 sv 18:49 Initial Sepsis Screen: Does the patient meet any 2 criteria? RR > 20 per min. No. sv Patient's initial sepsis screen is negative. Does the patient have a suspected source of infection? No. Patient's initial sepsis screen is negative. Triage Assessment: 18:51 General: Appears in no apparent distress. comfortable, Behavior is cooperative, bp appropriate for age, agitated, anxious. Pain: Denies pain. EENT: No deficits noted. Neuro: No deficits noted. Cardiovascular: No deficits noted. Respiratory: Reports shortness of breath Onset: The symptoms/episode began/occurred this morning, the patient reports symptoms have resolved. GI: No signs and/or symptoms were reported involving the gastrointestinal system. : No signs and/or symptoms were reported regarding the genitourinary system. Derm: No deficits noted. Musculoskeletal: No deficits noted. Historical: - Allergies: 18:49 No Known Allergies; sv - PMHx: 18:49 Depression; sv - PSHx: 18:49 Tonsillectomy; sv - Immunization history:: Flu vaccine status is unknown. - Social history:: Smoking status: unknown. Screenin:53 Abuse screen: Denies threats or abuse. Denies injuries from another. Nutritional bp screening: No deficits noted. Tuberculosis screening: No symptoms or risk factors identified. Fall Risk None identified. Assessment: 18:52 General: SEE TRIAGE NOTE. General: PT NOTED TO BE HICCUPING. Cardiovascular: Rhythm is bp sinus bradycardia. Respiratory: Airway is patent Respiratory effort is even, unlabored, Respiratory pattern is regular, Breath sounds are clear bilaterally. 19:17 General: Appears comfortable, Behavior is anxious. Pain: Complains of pain in chest. mg2 Neuro: Level of Consciousness is awake, alert, obeys commands, Oriented to person, place, time, situation. Respiratory: Airway is patent Respiratory effort is even, unlabored, Respiratory pattern is regular, symmetrical. GI: Reports nausea. : EENT: No signs and/or symptoms were reported regarding the EENT system. Derm: Skin is intact, is healthy with good turgor, Skin is pink, warm \T\ dry. normal. Musculoskeletal: Circulation, motion, and sensation intact. Capillary refill < 3 seconds. 21:40 Reassessment: Patient appears in no apparent distress at this time. Patient and/or mg2 family updated on plan of care and expected duration. Pain level reassessed. Patient is alert, oriented x 3, equal unlabored respirations, skin warm/dry/pink. Patient states feeling better. Patient states symptoms have improved. Vital Signs: 18:49 BP 151 / 73; Pulse 41; Resp 26; Temp 98; Pulse Ox 99% ; Weight 74.84 kg; Height 5 ft. sv 10 in. (177.80 cm); 19:18 BP 110 / 94; Pulse 84; Resp 26; Pulse Ox 100% on R/A; mg2 21:05 Pulse 80; Resp 18; Pulse Ox 100% on R/A; mg2 21:40 BP 144 / 64; Pulse 70; Resp 18; Pulse Ox 100% on R/A; mg2 22:17 BP 125 / 78; Pulse 80; Resp 18; Temp 98; Pulse Ox 100% on R/A; mg2 18:49 Body Mass Index 23.67 (74.84 kg, 177.80 cm) sv ED Course: 18:31 Patient arrived in ED. mr 18:48 Arm band placed on. sv 18:49 Triage completed. sv 18:51 Gerry Casey, RN is Primary Nurse. bp 18:53 Patient has correct armband on for positive identification. Bed in low position. Call bp light in reach. Side rails up X2. 19:00 Jose Wheat MD is Attending Physician. [facility] 19:19 No provider procedures requiring assistance completed. mg2 19:25 Inserted saline lock: 20 gauge in right antecubital area, using aseptic technique. mg2 Blood collected. 19:53 Chest Single View XRAY In Process Unspecified. EDMS 20:43 CT Chest For PE Angio In Process Unspecified. EDMS 20:43 CT Abd/Pelvis - IV Contrast Only In Process Unspecified. EDMS 22:17 IV discontinued, intact, bleeding controlled, No redness/swelling at site. Pressure mg2 dressing applied. Administered Medications: 19:41 Drug: NS 0.9% 1000 ml Route: IV; Rate: 1000 ml; Site: right antecubital; mg2 21:35 Follow up: Response: No adverse reaction; IV Status: Completed infusion; IV Intake: mg2 1000ml 19:41 Drug: Pepcid 20 mg Route: IVP; Site: right antecubital; mg2 21:35 Follow up: Response: No adverse reaction mg2 19:41 Drug: Zofran (Ondansetron) 4 mg Route: IVP; Site: right antecubital; mg2 21:34 Follow up: Response: No adverse reaction mg2 19:52 Drug: GI Cocktail without - (Maalox Suspension 30 ml, Lidocaine Liquid 2 % 15 mg2 ml) Route: PO; 21:34 Follow up: Response: No adverse reaction mg2 21:35 Drug: NS 0.9% 1000 ml Route: IV; Rate: 1000 ml; Site: right antecubital; mg2 22:17 Follow up: Response: No adverse reaction; IV Status: Completed infusion; IV Intake: mg2 1000ml Intake: 21:35 IV: 1000ml; Total: 1000ml. mg2 22:17 IV: 1000ml; Total: 2000ml. mg2 Outcome: 22:11 Discharge ordered by . mh7 22:17 Discharged to home ambulatory. mg2 22:17 Condition: stable 22:17 Discharge instructions given to patient, Instructed on discharge instructions, follow up and referral plans. medication usage, Demonstrated understanding of instructions, follow-up care, medications, Prescriptions given X 3. 22:18 Patient left the ED. mg2 Signatures: Dispatcher [employer] EDMS Shanon Fuentes RN RN SilverErica mr Gerry Casey RN RN bp Gardose, Michele, RN RN mg2 Wheat, Jose, MD MD mh7
--- NOTE | 2020-04-27 22:12 | EDPHYS ---
Physician Documentation [facility] Name: Jevon Wilkins Age: 19 yrs Sex: Male : 2000 Arrival Date: 04/27/2020 Time: 18:31 Bed 7 Private MD: ED Physician Jose Wheat HPI: 04/27 19:36 This 19 yrs old Male presents to ER via Ambulatory with complaints of mh7 Breathing Difficulty. 19:36 The patient has shortness of breath at rest, after vomiting. Onset: The mh7 symptoms/episode began/occurred this morning. Duration: The symptoms are intermittent, with no pattern. The patient's shortness of breath is aggravated by vomiting, is alleviated by nothing. Associated signs and symptoms: Pertinent positives: nausea, vomiting, Pertinent negatives: chest pain, non-productive cough, productive cough, diaphoresis, dizziness, fever, hemoptysis, loss of consciousness, numbness in extremities, visual changes. Severity of symptoms: At their worst the symptoms were moderate this morning, in the emergency department the symptoms have improved moderately. Historical: - Allergies: 18:49 No Known Allergies; sv - PMHx: 18:49 Depression; sv - PSHx: 18:49 Tonsillectomy; sv - Immunization history:: Flu vaccine status is unknown. - Social history:: Smoking status: unknown. ROS: 19:36 Constitutional: Negative for fever, chills, and weight loss, Eyes: Negative for injury, mh7 pain, redness, and discharge, ENT: Negative for injury, pain, and discharge, Neck: Negative for injury, pain, and swelling, Cardiovascular: Negative for chest pain, palpitations, and edema, Back: Negative for injury and pain, : Negative for injury, bleeding, discharge, and swelling, MS/Extremity: Negative for injury and deformity, Skin: Negative for injury, rash, and discoloration, Neuro: Negative for headache, weakness, numbness, tingling, and seizure, Allergy/Immunology: Negative for hives, rash, and allergies, Endocrine: Negative for neck swelling, polydipsia, polyuria, polyphagia, and marked weight changes, Hematologic/Lymphatic: Negative for swollen nodes, abnormal bleeding, and unusual bruising. Exam: 19:36 Head/Face: Normocephalic, atraumatic. Eyes: Pupils equal round and reactive to light, mh7 extra-ocular motions intact. Lids and lashes normal. Conjunctiva and sclera are non-icteric and not injected. Cornea within normal limits. Periorbital areas with no swelling, redness, or edema. ENT: Nares patent. No nasal discharge, no septal abnormalities noted. Tympanic membranes are normal and external auditory canals are clear. Oropharynx with no redness, swelling, or masses, exudates, or evidence of obstruction, uvula midline. Mucous membranes moist. Neck: Trachea midline, no thyromegaly or masses palpated, and no cervical lymphadenopathy. Supple, full range of motion without nuchal rigidity, or vertebral point tenderness. No Meningismus. Chest/axilla: Normal chest wall appearance and motion. Nontender with no deformity. No lesions are appreciated. Cardiovascular: Regular rate and rhythm with a normal S1 and S2. No gallops, murmurs, or rubs. Normal PMI, no JVD. No pulse deficits. 19:36 Back: No spinal tenderness. No costovertebral tenderness. Full range of motion. Skin: Warm, dry with normal turgor. Normal color with no rashes, no lesions, and no evidence of cellulitis. MS/ Extremity: Pulses equal, no cyanosis. Neurovascular intact. Full, normal range of motion. Neuro: Awake and alert, GCS 15, oriented to person, place, time, and situation. Cranial nerves II-XII grossly intact. Motor strength 5/5 in all extremities. Sensory grossly intact. Cerebellar exam normal. Normal gait. 19:36 Constitutional: The patient appears in no acute distress, alert, awake, anxious. 19:36 Respiratory: mild respiratory distress is noted, Respirations: tachypnea, that is mild, Breath sounds: are clear throughout, Respiratory rate: 26 19:36 Abdomen/GI: Inspection: abdomen appears normal, Bowel sounds: normal, in all quadrants, Palpation: mild abdominal tenderness, in the epigastric area, no appreciated organomegaly, Rectal exam: the exam is deferred, because of patient request, Indicators: McBurney's point is not tender, Castaneda's sign is negative, Rovsing's sign is negative, Obturator sign is negative, Psoas sign is negative, Liver: no appreciated palpable abnormalities, Hernia: not appreciated. 19:36 Psych: Behavior/mood is pleasant, cooperative, anxious, Affect is calm, Oriented to person, place, time, Patient has no thoughts/intents to harm self or others. Judgement / Insight is normal. Memory is normal. Delusions/hallucinations are not present. 22:14 ECG was reviewed by the Attending Physician. [facility] Vital Signs: 18:49 BP 151 / 73; Pulse 41; Resp 26; Temp 98; Pulse Ox 99% ; Weight 74.84 kg; Height 5 ft. sv 10 in. (177.80 cm); 19:18 BP 110 / 94; Pulse 84; Resp 26; Pulse Ox 100% on R/A; mg2 21:05 Pulse 80; Resp 18; Pulse Ox 100% on R/A; mg2 21:40 BP 144 / 64; Pulse 70; Resp 18; Pulse Ox 100% on R/A; mg2 22:17 BP 125 / 78; Pulse 80; Resp 18; Temp 98; Pulse Ox 100% on R/A; mg2 18:49 Body Mass Index 23.67 (74.84 kg, 177.80 cm) sv MDM: 19:25 Patient medically screened. [facility] 22:08 Differential diagnosis: Anemia Anxiety Reaction asthma, Bronchitis Myocardial 7 Infarction pneumonia, Pneumothorax Psychogenic pulmonary edema, Pulmonary Embolism reactive airway disease, Pancreatitis, abdominal pain. Data reviewed: vital signs, nurses notes, lab test result(s), cardiac enzymes, CBC, electrolytes, urinalysis, urine drug screen, EKG, radiologic studies, CT scan, plain films. Data interpreted: Pulse oximetry: on room air is 100 %. Interpretation: normal. Counseling: I had a detailed discussion with the patient and/or guardian regarding: the historical points, exam findings, and any diagnostic results supporting the discharge/admit diagnosis, the presence of at least one elevated blood pressure reading (>120/80) during this emergency department visit, lab results, radiology results, the need for outpatient follow up, to return to the emergency department if symptoms worsen or persist or if there are any questions or concerns that arise at home. Response to treatment: the patient's symptoms have resolved after treatment, the patient's blood pressure is in an acceptable range, mental status has returned to baseline, the patient no longer shows bradycardia, the patient is not short of breath, the patient is not tachycardic, the patient's pain is gone, the patient's temperature has normalized, the patient is now symptom free. 04/27 19:36 Order name: Basic Metabolic Panel; Complete Time: 20:28 7 04/27 19:36 Order name: CBC with Diff; Complete Time: 20:28 7 04/27 19:36 Order name: Hepatic Function; Complete Time: 20:28 7 04/27 19:36 Order name: Lipase; Complete Time: 20:28 7 04/27 19:36 Order name: Troponin (emerg Dept Use Only); Complete Time: 20:28 7 04/27 19:36 Order name: ETOH Level; Complete Time: 20:28 [facility] 04/27 19:36 Order name: UDS; Complete Time: 21:57 7 04/27 19:36 Order name: Chest Single View XRAY; Complete Time: 20:28 7 04/27 20:29 Order name: CT Chest For PE Angio; Complete Time: 21:00 7 04/27 20:29 Order name: CT Abd/Pelvis - IV Contrast Only; Complete Time: 21:00 [facility] 04/27 21:23 Order name: Urine Dipstick--Ancillary (enter results); Complete Time: 21:57 3 04/27 19:36 Order name: IV Saline Lock; Complete Time: 19:36 7 04/27 19:36 Order name: Labs collected and sent; Complete Time: 19:36 7 04/27 19:36 Order name: EKG - Nurse/Tech; Complete Time: 19:57 7 04/27 19:36 Order name: Urine Dipstick-Ancillary (obtain specimen); Complete Time: 21:36 mh7 EC:14 Rate is 73 beats/min. Rhythm is regular, Normal Sinus Rhythm with PACs. QRS [place] is mh7 Normal. SD interval is normal. QRS interval is normal. QT interval is normal. No Q waves. T waves are Normal. No ST changes noted. Clinical impression: NSR w/ Non-specific ST/T Changes. Administered Medications: 19:41 Drug: NS 0.9% 1000 ml Route: IV; Rate: 1000 ml; Site: right antecubital; mg2 21:35 Follow up: Response: No adverse reaction; IV Status: Completed infusion; IV Intake: mg2 1000ml 19:41 Drug: Pepcid 20 mg Route: IVP; Site: right antecubital; mg2 21:35 Follow up: Response: No adverse reaction mg2 19:41 Drug: Zofran (Ondansetron) 4 mg Route: IVP; Site: right antecubital; mg2 21:34 Follow up: Response: No adverse reaction mg2 19:52 Drug: GI Cocktail without - (Maalox Suspension 30 ml, Lidocaine Liquid 2 % 15 mg2 ml) Route: PO; 21:34 Follow up: Response: No adverse reaction mg2 21:35 Drug: NS 0.9% 1000 ml Route: IV; Rate: 1000 ml; Site: right antecubital; mg2 22:17 Follow up: Response: No adverse reaction; IV Status: Completed infusion; IV Intake: mg2 1000ml Disposition: 04/27/20 22:11 Discharged to Home. Impression: Dyspnea, Abdominal Pain, Vomiting, Dehydration. - Condition is Stable. - Discharge Instructions: Cannabis Use Disorder, Shortness of Breath, [id number], Nausea and Vomiting, Adult, [id number], Abdominal Pain, Adult, [id number], Dehydration, Adult, [id number]-[id number]. - Prescriptions for Zofran ODT 4 mg Oral tablet,disintegrating - place 1 tablet by TRANSLINGUAL route every 8 hours As needed; 10 tablet. Bentyl 20 mg Oral Tablet - take 1 tablet by ORAL route every 6 hours As needed; 20 tablet. Pepcid 20 mg Oral Tablet - take 1 tablet by ORAL route every 12 hours for 5 days; 10 tablet. - Medication Reconciliation Form, Thank You Letter, Antibiotic Education, Prescription Opioid Use form. - Follow up: Private Physician; When: 1 - 2 days; Reason: Worsening of condition, Recheck today's complaints, Continuance of care, Re-evaluation by your physician. - Problem is new. - Symptoms have improved. Signatures: Dispatcher [employer] EDShanon Walker RN RN Venancio Purdy RN RN mg2 Jose Wheat MD MD mh7 Corrections: (The following items were deleted from the chart) 22:18 22:11 04/27/2020 22:11 Discharged to Home. Impression: Dyspnea; Abdominal Pain; mg2 Vomiting; Dehydration. Condition is Stable. Forms are Medication Reconciliation Form, Thank You Letter, Antibiotic Education, Prescription Opioid Use. Follow up: Private Physician; When: 1 - 2 days; Reason: Worsening of condition, Recheck today's complaints, Continuance of care, Re-evaluation by your physician. Problem is new. Symptoms have improved. mh7
[2020-04-27 22:37] VITALS: TEMP 98
[2020-04-27 22:39] VITALS: O2SAT 100
[2020-04-27 22:42] VITALS: BP 125/78
== END 2020-04-27 22:18 | disposition home or self-care (01) ==
LOC: ER 18:29
DX: R10.9 Unspecified abdominal pain (principal); R11.10 Vomiting, unspecified; E86.0 Dehydration
CPT/HCPCS: 36415; 71045; 71275; 74177; 80048; 80076; 80307; 80320; 81003; 83690; 84484; 85025; 93005; 96361; 96374; 96375; 99284; J2405; J7030; Q9967

== ENCOUNTER 2020-06-09 16:07 | Emergency (ER) | payer BC, SELFPAY ==
[2020-06-09] MEDS ORDERED: ONDANSETRON 4 MG (ODT) TAB ONE (17:24)
[2020-06-09 17:37] LABS: Absolute Lymphocytes (CBC) 1.1 K/uL (0.7-4.9); Basophils % 0.2 % (0-1.3); Hematocrit 45.5 % (39.6-49.0); Lymphocytes % 7.2 % (15.3-44.8); MPV 10.5 fL (7.6-11.3); RBC Red Blood Cell Count 5.28 M/uL (4.33-5.43)
[2020-06-09] MEDS ORDERED: ONDANSETRON 4 MG/2 ML VIAL ONE ×2 (17:43→20:29)
[2020-06-09] MEDS ORDERED: NA CHLORIDE 0.9% 1,000 ML ONE ×3 (17:44→20:30)
[2020-06-09] MEDS ORDERED: FAMOTIDINE 20 MG/2 ML VIAL IV ONE (17:44)
[2020-06-09 17:53] LABS: Albumin 4.8 g/dL (3.4-5.0); Bilirubin Direct 0.2 mg/dL (0-0.2); Bilirubin Total 0.7 mg/dL (0.2-1.0); Potassium 3.7 mmol/L (3.5-5.1); Protein, Total 8.2 g/dL (6.4-8.2)
[2020-06-09 20:04] LABS: Blood Morphology Comment NOT SEEN (NOT SEEN); Platelet Estimate ADEQ; White Blood Cell Scan OK (OK)
--- NOTE | 2020-06-09 20:22 | RAD REPORT ---
EXAM DESCRIPTION: CT - Abdomen Pelvis W Contrast - 06/09/2020 7:43 pm CLINICAL HISTORY: Abdominal pain COMPARISON: April 2020 TECHNIQUE: Computed axial tomography of the abdomen pelvis was obtained. 100 cc Isovue-300 was admin istered intravenously. Oral contrast was not requested which limits evaluation of bowel. All CT scans are performed using dose optimization technique as appropriate and may include automated exposure control or mA/KV adjustment according to patient size. FINDINGS: The liver, spleen, pancreas, adrenal and kidneys appear unremarkable. There is no evidence of diverticulitis. Normal appendix. Tiny umbilical hernia IMPRESSION: No acute abnormality is displayed.
[2020-06-09] MEDS ORDERED: MAGNES/ALUMIN/SIMET 30ML UCUP ONE (20:29)
[2020-06-09] MEDS ORDERED: LIDOCAINE VISCOUS 2% SOLN 15 ML UDC ONE (20:30)
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
--- NOTE | 2020-06-09 20:31 | EDPHYS ---
Physician Documentation [facility] Name: Jevon Wilkins Age: 20 yrs Sex: Male : 2000 Arrival Date: 06/09/2020 Time: 16:09 Bed 20 Private MD: ED Physician Rubén Beltran HPI: 06/09 17:10 This 20 yrs old Male presents to ER via Ambulatory with complaints of cp Vomiting. 17:10 The patient presents to the emergency department with nausea, with "dry heaves", cp vomiting, that is continuous, abdominal pain, of the epigastric area. Onset: The symptoms/episode began/occurred today. Possible causes: admits to drinking alcohol last night. Associated signs and symptoms: Pertinent positives: anorexia, Pertinent negatives: constipation, diarrhea, GI bleeding. Severity of symptoms: in the emergency department the symptoms are unchanged despite home interventions. Historical: - Allergies: 16:31 No Known Allergies; iw - Home Meds: 16:39 None [Active]; iw - PMHx: 16:31 Depression; iw - PSHx: 16:39 None; iw - Immunization history:: Adult Immunizations up to date. - Social history:: Smoking status: Patient reports the use of cigarette tobacco products, smokes one pack cigarettes per day. ROS: 17:15 Constitutional: Positive for poor PO intake, Negative for body aches, chills, fever. cp 17:15 Eyes: Negative for injury, pain, redness, and discharge. cp 17:15 Cardiovascular: Negative for edema, palpitations. cp 17:15 Respiratory: Negative for cough, shortness of breath, wheezing. 17:15 Abdomen/GI: Positive for abdominal pain, nausea and vomiting, anorexia, Negative for constipation, hematemesis, black/tarry stool. 17:15 ENT: Negative for ear pain, sore throat, difficulty swallowing, difficulty handling cp secretions. 17:15 Back: Negative for radiated pain. 17:15 Neuro: Negative for altered mental status, headache, weakness. 17:15 All other systems are negative. Exam: 17:20 Constitutional: The patient appears in no acute distress, alert, awake, non-toxic, well cp developed, well nourished, uncomfortable. 17:20 Head/Face: Normocephalic, atraumatic. cp 17:20 Eyes: Periorbital structures: appear normal, Conjunctiva: normal, no exudate, no injection, Sclera: no appreciated abnormality, Lids and lashes: appear normal, bilaterally. 17:20 ENT: External ear(s): are unremarkable, Nose: is normal, Mouth: Lips: moist, Oral mucosa: moist, Posterior pharynx: Airway: no evidence of obstruction, patent. 17:20 Chest/axilla: Inspection: normal, Palpation: is normal, no crepitus, no tenderness. 17:20 Cardiovascular: Rate: normal, Rhythm: regular. 17:20 Respiratory: the patient does not display signs of respiratory distress, Respirations: normal, no use of accessory muscles, no retractions, labored breathing, is not present, Breath sounds: are clear throughout, no decreased breath sounds, no stridor, no wheezing. 17:20 Abdomen/GI: Inspection: abdomen appears normal, Bowel sounds: active, all quadrants, Palpation: soft, in all quadrants, mild abdominal tenderness, in the epigastric area, rebound tenderness, is not appreciated, involuntary guarding, is not appreciated. 17:20 Back: CVA tenderness, is absent. 17:20 Neuro: Orientation: to person, place \\T\\ time. Mentation: is normal. Vital Signs: 16:27 BP 139 / 77; Pulse 82; Resp 16; Temp 97.6; Pulse Ox 99% on R/A; Weight 77.11 kg; Height iw 5 ft. 9 in. (175.26 cm); 18:11 BP 129 / 82; Pulse 82; Resp 16 S; Pulse Ox 99% on R/A; jd3 21:16 BP 120 / 85; Pulse 80; Resp 18; Temp 98; Pulse Ox 100% on R/A; Pain 0/10; mg2 16:27 Body Mass Index 25.10 (77.11 kg, 175.26 cm) iw MDM: 17:02 Patient medically screened. russell 17:30 Differential diagnosis: gastritis, cholecystitis, pancreatitis, appendicitis, viral cp gastroenteritis, gastroenteritis. 20:30 Data reviewed: vital signs, nurses notes, lab test result(s), radiologic studies, CT cp scan. 20:30 Counseling: I had a detailed discussion with the patient and/or guardian regarding: the cp historical points, exam findings, and any diagnostic results supporting the discharge/admit diagnosis, lab results, radiology results, to return to the emergency department if symptoms worsen or persist or if there are any questions or concerns that arise at home. Response to treatment: the patient's symptoms have markedly improved after treatment, VSS. Nausea and pain improved. Vomiting resolved and patient observed tolerating po fluids. Will discharge to home for continued monitoring. 06/09 17:21 Order name: Basic Metabolic Panel cp 06/09 17:21 Order name: CBC with Diff; Complete Time: 20:26 cp 06/09 18:38 Interpretation: Normal except: WBC 15.6; GARY% 89.1; LYM% 7.2; NEUT A 13.9. cp 06/09 17:21 Order name: Hepatic Function; Complete Time: 18:38 cp 06/09 17:21 Order name: Lipase; Complete Time: 18:38 cp 06/09 17:22 Order name: Basic Metabolic Panel; Complete Time: 18:38 EDMS 06/09 20:04 Order name: CBC Smear Scan; Complete Time: 20:26 EDMS 06/09 18:38 Order name: CT Abd/Pelvis - IV Contrast Only; Complete Time: 20:26 cp 06/09 20:26 Interpretation: Report reviewed. cp 06/09 17:05 Order name: PO challenge; Complete Time: 18:14 cp 06/09 17:21 Order name: IV Saline Lock; Complete Time: 17:28 cp 06/09 17:21 Order name: Labs collected and sent; Complete Time: 17:28 cp 06/09 20:27 Order name: PO challenge; Complete Time: 20:39 cp Administered Medications: 17:18 Drug: Zofran (Ondansetron) 4 mg Route: PO; jd3 17:35 Drug: NS 0.9% 1000 ml Route: IV; Rate: 1 bolus; Site: right antecubital; jd3 20:13 Follow up: Response: No adverse reaction; IV Status: Completed infusion; IV Intake: mg2 1000ml 17:35 Drug: Zofran (Ondansetron) 4 mg Route: IVP; Site: right antecubital; jd3 20:13 Follow up: Response: No adverse reaction mg2 17:36 Drug: Pepcid 20 mg Route: IVP; Site: right antecubital; jd3 20:13 Follow up: Response: No adverse reaction mg2 18:46 Drug: NS 0.9% 1000 ml Route: IV; Rate: 1 bolus; Site: right antecubital; jd3 20:13 Follow up: Response: No adverse reaction; IV Status: Completed infusion; IV Intake: mg2 1000ml 20:20 Drug: GI Cocktail without - (Maalox Suspension 30 ml, Lidocaine Liquid 2 % 15 mg2 ml) Route: PO; 20:20 Drug: Zofran (Ondansetron) 4 mg Route: IVP; Site: right antecubital; mg2 Disposition: 06/10 14:41 Co-signature as Attending Physician, Rubén Beltran MD I agree with the assessment and russell plan of care. Disposition: 06/09/20 20:30 Discharged to Home. Impression: Nausea and vomiting. - Condition is Stable. - Discharge Instructions: Dehydration, Adult, Nausea and Vomiting, Adult. - Prescriptions for Pepcid 20 mg Oral Tablet - take 1 tablet by ORAL route every 12 hours for 10 days; 20 tablet. promethazine 25 mg Oral Tablet - take 1 tablet by ORAL route every 6 hours As needed; 20 tablet. - Medication Reconciliation Form, Thank You Letter, Antibiotic Education, Prescription Opioid Use form. - Follow up: Private Physician; When: 1 - 2 days; Reason: Recheck today's complaints. - Problem is new. - Symptoms have improved. Signatures: Dispatcher [employer] Rubén Beal MD MD cha Williams, Irene RN LAMONT iw Rubén Gaona PA PA cp Davies, Jonathon, RN RN jVenancio Ortiz RN RN mg2 Corrections: (The following items were deleted from the chart) 06/09 16:31 Home Meds: Seroquel 300 mg Oral tab 1 tab once daily; 16:31 Home Meds: Seroquel 100 mg Oral tab 1 tab nightly; 16:31 Home Meds: lamotrigine oral oral 2 times per day; 16: Home Meds: Strattera oral oral once daily; 16:31 PSHx: Tonsillectomy; 16:31 Social history: Smoking status: Patient reports the use of cigarette tobacco iw products, smokes one-half pack cigarettes per day, iw 21:16 20:30 06/09/2020 20:30 Discharged to Home. Impression: Nausea and vomiting. Condition mg2 is Stable. Forms are Medication Reconciliation Form, Thank You Letter, Antibiotic Education, Prescription Opioid Use. Follow up: Private Physician; When: 1 - 2 days; Reason: Recheck today's complaints. Problem is new. Symptoms have improved. cp
[2020-06-09 21:43] VITALS: BP 120/85; TEMP 98; O2SAT 100
== END 2020-06-09 21:16 | disposition home or self-care (01) ==
LOC: ER 16:07
DX: R11.2 Nausea with vomiting, unspecified (principal); F17.210 Nicotine dependence, cigarettes, uncomplicated
CPT/HCPCS: 36415; 74177; 80048; 80076; 83690; 85025; 96361; 96374; 96375; 99284; J2405; J7030; Q9967

== ENCOUNTER 2020-06-10 16:34 | Emergency (ER) | payer SELFPAY ==
[2020-06-10 17:09] LABS: Absolute Lymphocytes (CBC) 1.2 K/uL (0.7-4.9); Basophils % 0.3 % (0-1.3); Hematocrit 45.5 % (39.6-49.0); Lymphocytes % 9.2 % (15.3-44.8); MPV 10.4 fL (7.6-11.3); RBC Red Blood Cell Count 5.26 M/uL (4.33-5.43)
[2020-06-10] MEDS ORDERED: LORazepam 2 MG/ML VIAL ONE (17:13)
[2020-06-10] MEDS ORDERED: NA CHLORIDE 0.9% 1,000 ML ONE ×2 (17:13→18:50)
[2020-06-10] MEDS ORDERED: FAMOTIDINE 20 MG/2 ML VIAL IV ONE (17:13)
[2020-06-10] MEDS ORDERED: PROMETHAZINE INJ 25 MG/ML AMP ONE (17:13)
[2020-06-10 17:27] LABS: Albumin 4.4 g/dL (3.4-5.0); Bilirubin Direct 0.3 mg/dL (0-0.2); Bilirubin Total 1.1 mg/dL (0.2-1.0); Potassium 3.3 mmol/L (3.5-5.1); Protein, Total 7.6 g/dL (6.4-8.2)
[2020-06-10] MEDS ORDERED: LIDOCAINE VISCOUS 2% SOLN 15 ML UDC ONE (18:19)
[2020-06-10] MEDS ORDERED: MAGNES/ALUMIN/SIMET 30ML UCUP ONE (18:19)
[2020-06-10] MEDS ORDERED: METOCLOPRAMIDE 10 MG/2mL INJ ONE (18:50)
--- NOTE | 2020-06-10 20:17 | EDPHYS ---
Physician Documentation [facility] Name: Jevon Wilkins Age: 20 yrs Sex: Male : 2000 Arrival Date: 06/10/2020 Time: 16:35 Bed 20 Private MD: ED Physician Paul Wilkins HPI: 06/10 16:49 This 20 yrs old Male presents to ER via Ambulatory with complaints of kdr Nausea/Vomiting, Breathing Difficulty. 16:49 The patient presents to the emergency department with nausea, that is mild, that is kdr moderate, vomiting, that is intermittent, abdominal pain, of the abdomen diffusely. Onset: The symptoms/episode began/occurred gradually, this morning. Possible causes: The patient was seen here yesterday for ETOH abuse and was discharged without incident. The symptoms are aggravated by food , The symptoms are alleviated by nothing. Associated signs and symptoms: Pertinent positives: abdominal pain, anorexia, nausea, vomiting. Severity of symptoms: At their worst the symptoms were mild moderate just prior to arrival, in the emergency department the symptoms are unchanged. The patient has experienced similar episodes in the past, several times. The patient has been recently seen at the [facility] Emergency Department, yesterday. Historical: - Allergies: 16:49 No Known Allergies; ss - PMHx: 16:49 Depression; ss - PSHx: 16:49 None; ss - Immunization history:: Adult Immunizations up to date. - Social history:: Smoking status: Patient reports the use of cigarette tobacco products, smokes one-half pack cigarettes per day. ROS: 16:49 Constitutional: Negative for fever, chills, and weight loss, Eyes: Negative for injury, kdr pain, redness, and discharge, ENT: Negative for injury, pain, and discharge, Neck: Negative for injury, pain, and swelling, Cardiovascular: Negative for chest pain, palpitations, and edema, Back: Negative for injury and pain, : Negative for injury, bleeding, discharge, and swelling, MS/Extremity: Negative for injury and deformity, Skin: Negative for injury, rash, and discoloration, Neuro: Negative for headache, weakness, numbness, tingling, and seizure activity. Psych: Negative for depression, anxiety, suicide ideation, homicidal ideation, and hallucinations, Allergy/Immunology: Negative for hives, rash, and allergies, Endocrine: Negative for neck swelling, polydipsia, polyuria, polyphagia, and marked weight changes, Hematologic/Lymphatic: Negative for swollen nodes, abnormal bleeding, and unusual bruising. 16:49 Constitutional: The patient is hyperventilating on initial interview 16:49 Respiratory: Positive for dyspnea on exertion, shortness of breath, at rest. Negative for cough, sputum production, wheezing. 16:49 Abdomen/GI: Positive for nausea and vomiting, Negative for diarrhea, constipation, abdominal distension, black/tarry stool. Exam: 16:49 Constitutional: This is a well developed, well nourished patient who is awake, alert, kdr and in moderate distress with carpal spasms. Head/Face: Normocephalic, atraumatic. Eyes: Pupils equal round and reactive to light, extra-ocular motions intact. Lids and lashes normal. Conjunctiva and sclera are non-icteric and not injected. Cornea within normal limits. Periorbital areas with no swelling, redness, or edema. Neck: Trachea midline, no thyromegaly or masses palpated, and no cervical lymphadenopathy. Supple, full range of motion without nuchal rigidity, or vertebral point tenderness. No Meningismus. Chest/axilla: Normal chest wall appearance and motion. Nontender with no deformity. No lesions are appreciated. Cardiovascular: Regular rate and rhythm with a normal S1 and S2. No gallops, murmurs, or rubs. Normal PMI, no JVD. No pulse deficits. Back: No spinal tenderness. No costovertebral tenderness. Full range of motion. Skin: Warm, dry with normal turgor. Normal color with no rashes, no lesions, and no evidence of cellulitis. MS/ Extremity: Pulses equal, no cyanosis. Neurovascular intact. Full, normal range of motion. 16:49 Respiratory: mild respiratory distress is noted, Respirations: nasal flaring, that is mild, shallow respirations, Breath sounds: are clear throughout, Respiratory rate: 28 Vital Signs: 16:46 BP 149 / 71; Pulse 124; Resp 28; Temp 97.4(TE); Pulse Ox 99% on R/A; Weight 77.11 kg; ss Height 5 ft. 10 in. (177.80 cm); Pain 7/10; 17:21 BP 97 / 67; Pulse 63; Resp 22; Pulse Ox 95% on R/A; Pain 10/10; zb 18:45 BP 107 / 86; Pulse 67; Resp 18; Pulse Ox 97% on R/A; ph 20:32 BP 123 / 74; Pulse 70; Resp 18; Temp 98; Pulse Ox 100% on R/A; Pain 0/10; mg2 16:46 Body Mass Index 24.39 (77.11 kg, 177.80 cm) ss MDM: 16:49 Data reviewed: vital signs, nurses notes, lab test result(s). Counseling: I had a kdr detailed discussion with the patient and/or guardian regarding: the historical points, exam findings, and any diagnostic results supporting the discharge/admit diagnosis, lab results, radiology results, the need for outpatient follow up. 20:16 Patient medically screened. 06/10 16:48 Order name: Basic Metabolic Panel; Complete Time: 17:55 [facility] 06/10 20:18 Interpretation: Normal except: K 3.3; GLUC 112; GFR 89. 06/10 16:48 Order name: CBC with Diff; Complete Time: 17:55 [facility] 06/10 20:18 Interpretation: Normal except: WBC 13.0; GARY% 83.4; LYM% 9.2; NEUT A 10.9. 06/10 16:48 Order name: Hepatic Function; Complete Time: 17:55 [facility] 06/10 16:48 Order name: Lipase; Complete Time: 17:55 [facility] 06/10 16:48 Order name: ETOH Level; Complete Time: 17:55 [facility] 06/10 16:48 Order name: IV Saline Lock; Complete Time: 17:01 [facility] 06/10 16:48 Order name: Labs collected and sent; Complete Time: 17:01 [facility] 06/10 19:32 Order name: PO challenge; Complete Time: 19:52 cp Administered Medications: 17:13 Drug: Pepcid 20 mg Route: IVP; Site: right antecubital; zb 17:49 Follow up: Response: No adverse reaction ph 18:04 Follow up: Response: No adverse reaction zb 17:14 Drug: Ativan 1 mg Route: IVP; Site: right antecubital; zb 17:49 Follow up: Response: No adverse reaction; Anxiety decreased ph 17:14 Drug: NS 0.9% 1000 ml Route: IV; Rate: 1 bolus; Site: right antecubital; zb 18:29 Follow up: Response: No adverse reaction; IV Status: Completed infusion ph 17:14 Drug: Phenergan 12.5 mg Route: IVP; Site: right antecubital; zb 17:49 Follow up: Response: No adverse reaction ph 18:11 Drug: GI Cocktail without - (Maalox Suspension 30 ml, Lidocaine Liquid 2 % 15 zb ml) Route: PO; 18:44 Follow up: Response: No adverse reaction ph 18:43 Drug: NS 0.9% 1000 ml Route: IV; Rate: 1 bolus; Site: right antecubital; ph 19:30 Follow up: Response: No adverse reaction; IV Status: Completed infusion; IV Intake: mg2 1000ml 18:44 Drug: Reglan 10 mg Route: IVP; Site: right antecubital; ph 19:32 Follow up: Response: No adverse reaction mg2 Disposition: 06/10/20 20:16 Discharged to Home. Impression: Nausea and vomiting. - Condition is Stable. - Discharge Instructions: Dehydration, Adult, Nausea and Vomiting, Adult. - Prescriptions for Reglan 10 mg Oral Tablet - take 1 tablet by ORAL route every 6 hours take 30 minutes before meals and at bedtime; 20 tablet. Vistaril 25 mg Oral capsule - take 1 capsule by ORAL route 4 times per day; 30 capsule. Pepcid 20 mg Oral Tablet - take 1 tablet by ORAL route every 12 hours for 5 days; 10 tablet. - Medication Reconciliation Form, Thank You Letter, Antibiotic Education, Prescription Opioid Use form. - Follow up: Private Physician; When: 1 - 2 days; Reason: Recheck today's complaints. - Problem is an ongoing problem. - Symptoms have improved. Signatures: Dispatcher [employer] EDMS Paul Wilkins MD MD kdr Smirch, Shelby, RN RN ss Jaja Tipton RN RN Rubén Barrett PA PA cp Gardose, Michele, RN RN mg2 Michaela Galvin RN RN zyoana Corrections: (The following items were deleted from the chart) 20:33 20:16 06/10/2020 20:16 Discharged to Home. Impression: Nausea and vomiting. Condition mg2 is Stable. Forms are Medication Reconciliation Form, Thank You Letter, Antibiotic Education, Prescription Opioid Use. Follow up: Private Physician; When: 1 - 2 days; Reason: Recheck today's complaints. Problem is an ongoing problem. Symptoms have improved. cp
--- NOTE | 2020-06-10 20:17 | ER ---
Nurse's Notes [facility] Name: Jevon Wilkins Age: 20 yrs Sex: Male : 2000 Arrival Date: 06/10/2020 Time: 16:35 Bed 20 Private MD: Diagnosis: Nausea and vomiting Presentation: 06/10 16:46 Chief complaint: Patient states: shortness of breath, N/V that began yesterday. Pt ss reports that he was seen yesterday for alcohol poisoning and discharged home with Zofran that is not helping. Coronavirus screen: Client denies travel out of the [place] in the last 14 days. Ebola Screen: Patient denies exposure to infectious person. Patient denies travel to an Ebola-affected area in the 21 days before illness onset. Initial Sepsis Screen: Does the patient meet any 2 criteria? RR > 20 per min. HR > 90 bpm. Does the patient have a suspected source of infection? No. Patient's initial sepsis screen is negative. Risk Assessment: Do you want to hurt yourself or someone else? Patient reports no desire to harm self or others. Onset of symptoms was June 09, 2020. 16:46 Method Of Arrival: Ambulatory ss 16:46 Acuity: KATIE 2 ss Historical: - Allergies: 16:49 No Known Allergies; ss - PMHx: 16:49 Depression; ss - PSHx: 16:49 None; ss - Immunization history:: Adult Immunizations up to date. - Social history:: Smoking status: Patient reports the use of cigarette tobacco products, smokes one-half pack cigarettes per day. Screenin:20 Abuse screen: Denies threats or abuse. Denies injuries from another. Nutritional zb screening: No deficits noted. Tuberculosis screening: No symptoms or risk factors identified. Fall Risk None identified. Assessment: 17:15 General: Appears in no apparent distress. uncomfortable, Behavior is cooperative, zb anxious, Denies fever, fatigue, chills. Pain: Complains of pain in epigastric area Pain currently is 10 out of 10 on a pain scale. Quality of pain is described as burning, Pain began 2-3 days ago. Aggravated by eating. Neuro: Level of Consciousness is awake, alert, obeys commands, Oriented to person, place, time, situation. Cardiovascular: Capillary refill < 3 seconds in bilateral fingers. Respiratory: Reports shortness of breath at rest Airway is patent. GI: Abdomen is non-distended, Reports epigastric pain, nausea, vomiting. : No deficits noted. No signs and/or symptoms were reported regarding the genitourinary system. EENT: No signs and/or symptoms were reported regarding the EENT system. Derm: No deficits noted. No signs and/or symptoms reported regarding the dermatologic system. Skin is intact, is healthy with good turgor. Musculoskeletal: Circulation, motion, and sensation intact. 18:47 Reassessment: Patient appears in no apparent distress at this time. Patient and/or ph family updated on plan of care and expected duration. Pain level reassessed. Patient is alert, oriented x 3, equal unlabored respirations, skin warm/dry/pink. 20:15 Reassessment: patient tolerate the po challenge. mg2 Vital Signs: 16:46 BP 149 / 71; Pulse 124; Resp 28; Temp 97.4(TE); Pulse Ox 99% on R/A; Weight 77.11 kg; ss Height 5 ft. 10 in. (177.80 cm); Pain 7/10; 17:21 BP 97 / 67; Pulse 63; Resp 22; Pulse Ox 95% on R/A; Pain 10/10; zb 18:45 BP 107 / 86; Pulse 67; Resp 18; Pulse Ox 97% on R/A; ph 20:32 BP 123 / 74; Pulse 70; Resp 18; Temp 98; Pulse Ox 100% on R/A; Pain 0/10; mg2 16:46 Body Mass Index 24.39 (77.11 kg, 177.80 cm) ED Course: 16:35 Patient arrived in ED. ag5 16:39 Paul Wilkins MD is Attending Physician. kdr 16:40 Jaja Tipton RN is Primary Nurse. ph 16:48 Triage completed. ss 16:49 Arm band placed on right wrist. ss 16:50 Initial lab(s) drawn, by ks, sent to lab. Inserted saline lock: 20 gauge in right ca1 antecubital area, using aseptic technique. Blood collected. 17:21 Patient has correct armband on for positive identification. Placed in gown. Bed in low zb position. Call light in reach. Side rails up X 1. Pulse ox on. NIBP on. Door closed. Noise minimized. Warm blanket given. Verbal reassurance given. Head of bed. 18:45 No provider procedures requiring assistance completed. ph 18:47 [facility] cp 20:11 Primary Nurse role handed off by Jaja Tipton, LAMONT 20:15 Venancio Purdy, RN is Primary Nurse. mg2 20:32 IV discontinued, intact, bleeding controlled, No redness/swelling at site. Pressure mg2 dressing applied. Administered Medications: 17:13 Drug: Pepcid 20 mg Route: IVP; Site: right antecubital; zb 17:49 Follow up: Response: No adverse reaction ph 18:04 Follow up: Response: No adverse reaction zb 17:14 Drug: Ativan 1 mg Route: IVP; Site: right antecubital; zb 17:49 Follow up: Response: No adverse reaction; Anxiety decreased ph 17:14 Drug: NS 0.9% 1000 ml Route: IV; Rate: 1 bolus; Site: right antecubital; zb 18:29 Follow up: Response: No adverse reaction; IV Status: Completed infusion ph 17:14 Drug: Phenergan 12.5 mg Route: IVP; Site: right antecubital; zb 17:49 Follow up: Response: No adverse reaction ph 18:11 Drug: GI Cocktail without - (Maalox Suspension 30 ml, Lidocaine Liquid 2 % 15 zb ml) Route: PO; 18:44 Follow up: Response: No adverse reaction ph 18:43 Drug: NS 0.9% 1000 ml Route: IV; Rate: 1 bolus; Site: right antecubital; ph 19:30 Follow up: Response: No adverse reaction; IV Status: Completed infusion; IV Intake: mg2 1000ml 18:44 Drug: Reglan 10 mg Route: IVP; Site: right antecubital; ph 19:32 Follow up: Response: No adverse reaction mg2 Outcome: 20:16 Discharge ordered by . cp 20:32 Discharged to home ambulatory, with family. mg2 20:32 Condition: stable 20:32 Discharge instructions given to patient, family, Instructed on discharge instructions, follow up and referral plans. medication usage, Demonstrated understanding of instructions, follow-up care, medications, Prescriptions given X 3. 20:33 Patient left the ED. mg2 Signatures: Donte Vega RN RN Paul Rodriguez MD MD kdr Smirch, Shelby, RN RN ss Jaja Tipton, RN RN ph Rubén Gaona, Venancio Walter cp, RN RN mg2 Paola Schuster, RN RN ca1 Oly Sharp agMichaela Sebastian, RN RN zb
[2020-06-10 21:57] VITALS: BP 123/74; TEMP 98; O2SAT 100
== END 2020-06-10 20:33 | disposition home or self-care (01) ==
LOC: ER 16:34
DX: R11.2 Nausea with vomiting, unspecified (principal); F17.210 Nicotine dependence, cigarettes, uncomplicated
CPT/HCPCS: 36415; 80048; 80076; 80320; 83690; 85025; 96361; 96374; 96375; 99284; J2550; J2765; J7030

== ENCOUNTER 2020-06-12 00:57 | Emergency (ER) | payer SELFPAY ==
[2020-06-12] MEDS ORDERED: LIDOCAINE VISCOUS 2% SOLN 15 ML UDC ONE ×2 (01:36→02:25)
[2020-06-12] MEDS ORDERED: MAGNES/ALUMIN/SIMET 30ML UCUP ONE ×2 (01:36→02:25)
[2020-06-12] MEDS ORDERED: ONDANSETRON 4 MG/2 ML VIAL ONE (01:36)
[2020-06-12] MEDS ORDERED: NA CHLORIDE 0.9% 1,000 ML ONE (01:43)
[2020-06-12 01:49] LABS: Absolute Lymphocytes (CBC) 3.9 K/uL (0.7-4.9); Basophils % 0.6 % (0-1.3); Hematocrit 45.1 % (39.6-49.0); Lymphocytes % 30.1 % (15.3-44.8); MPV 10.5 fL (7.6-11.3); RBC Red Blood Cell Count 5.18 M/uL (4.33-5.43)
[2020-06-12 02:16] LABS: ALT/SGPT 41 U/L (12-78); AST/SGOT 19 U/L (15-37); Albumin 4.2 g/dL (3.4-5.0); Alkaline Phosphatase 89 U/L (45-117); BUN Blood Urea Nitrogen 14 mg/dL (7-18); Bicarbonate 22 mmol/L (21-32); Bilirubin Direct 0.2 mg/dL (0-0.2); Bilirubin Total 0.5 mg/dL (0.2-1.0); Glucose Level 111 mg/dL (74-106); Lipase 134 U/L (73-393); Potassium 3.3 mmol/L (3.5-5.1); Protein, Total 7.5 g/dL (6.4-8.2); Sodium Level 139 mmol/L (136-145)
[2020-06-12] MEDS ORDERED: PROMETHAZINE INJ 25 MG/ML AMP ONE (02:25)
[2020-06-12] MEDS ORDERED: PANTOPRAZOLE 40 MG INJ ONE (02:29)
--- NOTE | 2020-06-12 03:19 | EDPHYS ---
Physician Documentation [facility] Name: Jevon Wilkins Age: 20 yrs Sex: Male : 2000 Arrival Date: 06/12/2020 Time: 01:00 Bed 5 Private MD: ED Physician Devendra Lopez HPI: 06/12 03:11 This 20 yrs old Male presents to ER via Ambulatory with complaints of tw4 Shortness Of Breath, Vomiting. 03:11 The patient has shortness of breath at rest. Onset: The symptoms/episode began/occurred tw4 today. Duration: The symptoms are continuous, and are unchanged since they started. The patient's shortness of breath has no apparent modifying factors. Associated signs and symptoms: The patient has no apparent associated signs or symptoms. The patient has not experienced similar symptoms in the past. Historical: - Allergies: 01:15 No Known Allergies; rv - Home Meds: 01:15 None [Active]; rv - PMHx: 01:15 Depression; rv - PSHx: 01:15 None; rv - Immunization history:: Adult Immunizations up to date. - Social history:: Smoking status: Patient reports the use of cigarette tobacco products, smokes one pack cigarettes per day. ROS: 03:11 Eyes: Negative for injury, pain, redness, and discharge, Cardiovascular: Negative for tw4 chest pain, palpitations, and edema, Abdomen/GI: Negative for abdominal pain, nausea, vomiting, diarrhea, and constipation, Back: Negative for injury and pain, MS/Extremity: Negative for injury and deformity, Skin: Negative for injury, rash, and discoloration, Neuro: Negative for headache, weakness, numbness, tingling, and seizure. 03:11 Respiratory: Positive for wheezing. 03:12 Abdomen/GI: Positive for abdominal pain, nausea and vomiting, nausea, vomiting, and tw4 diarrhea, nausea, vomiting, Negative for constipation, abdominal cramps, abdominal distension, anorexia, dysphagia, hematemesis, black/tarry stool, rectal pain, rectal bleeding. Exam: 03:11 Constitutional: This is a well developed, well nourished patient who is awake, alert, tw4 and in no acute distress. Head/Face: Normocephalic, atraumatic. Chest/axilla: Normal chest wall appearance and motion. Nontender with no deformity. No lesions are appreciated. Cardiovascular: Regular rate and rhythm with a normal S1 and S2. No gallops, murmurs, or rubs. Normal PMI, no JVD. No pulse deficits. Respiratory: Lungs have equal breath sounds bilaterally, clear to auscultation and percussion. No rales, rhonchi or wheezes noted. No increased work of breathing, no retractions or nasal flaring. Abdomen/GI: Soft, non-tender, with normal bowel sounds. No distension or tympany. No guarding or rebound. No evidence of tenderness throughout. Back: No spinal tenderness. No costovertebral tenderness. Full range of motion. MS/ Extremity: Pulses equal, no cyanosis. Neurovascular intact. Full, normal range of motion. Neuro: Awake and alert, GCS 15, oriented to person, place, time, and situation. Cranial nerves II-XII grossly intact. Motor strength 5/5 in all extremities. Sensory grossly intact. Cerebellar exam normal. Normal gait. Vital Signs: 01:12 Weight 77.11 kg; Height 5 ft. 10 in. (177.80 cm); Pain 10/10; rv 01:13 BP 154 / 94; Pulse 79; Resp 18; Temp 98.7(TE); Pulse Ox 100% on R/A; oe 02:21 BP 130 / 79; Pulse 67; Resp 17; Pulse Ox 99% on R/A; rv 03:08 BP 102 / 80; Pulse 75; Resp 18; Pulse Ox 100% on R/A; rv 04:37 BP 132 / 98; Pulse 77; Resp 18; Pulse Ox 100% on R/A; oe 05:53 BP 121 / 86; Pulse 75; Resp 16; Temp 98.5; Pulse Ox 99% on R/A; rv 01:12 Body Mass Index 24.39 (77.11 kg, 177.80 cm) rv MDM: 01:08 Patient medically screened. tw4 06:04 Differential diagnosis: Anemia reactive airway disease, Sepsis. Antibiotic tw4 administration: Not indicated. Data reviewed: vital signs, nurses notes. Counseling: I had a detailed discussion with the patient and/or guardian regarding: the historical points, exam findings, and any diagnostic results supporting the discharge/admit diagnosis, the presence of at least one elevated blood pressure reading (>120/80) during this emergency department visit. Special discussion: I discussed with the patient/guardian in detail that at this point there is no indication for admission to the hospital. It is understood, however, that if the symptoms persist or worsen the patient needs to return immediately for re-evaluation. 06/12 01:11 Order name: Flu; Complete Time: 02:13 tw4 06/12 01:11 Order name: Strep; Complete Time: 02:13 tw4 06/12 01:11 Order name: Basic Metabolic Panel; Complete Time: 03:09 tw4 06/12 03:09 Interpretation: Normal except: K 3.3; GLUC 111. tw4 06/12 01:11 Order name: CBC with Diff; Complete Time: 02:13 tw4 06/12 03:10 Interpretation: Normal except: WBC 12.9. tw 06/12 01:11 Order name: Hepatic Function; Complete Time: 03:09 tw4 06/12 03:09 Interpretation: Within normal limits. tw4 06/12 01:11 Order name: Lipase; Complete Time: 03:09 tw4 06/12 03:09 Interpretation: Within normal limits: LIP 134. tw 06/12 02:10 Order name: Throat Culture EDNE 06/12 04:22 Order name: SARS-COV-2 RT PCR EDNE 06/12 01:11 Order name: Document PUI#; Complete Time: 01:32 tw4 06/12 01:11 Order name: Droplet/Contact Precautions; Complete Time: :32 tw4 06/12 01:11 Order name: Labs collected and sent; Complete Time: :32 tw4 06/12 01:11 Order name: Notify Health Dept [phone]/ ; Complete Time: 01:32 tw4 06/12 01:11 Order name: O2 Per Protocol; Complete Time: : tw4 Administered Medications: 01:28 Drug: Zofran (Ondansetron) 4 mg Route: IVP; Site: right antecubital; 02:25 Follow up: Response: No adverse reaction rv 01:28 Drug: GI Cocktail without - (Maalox Suspension 30 ml, Lidocaine Liquid 2 % 15 wh ml) Route: PO; 02:23 Follow up: Response: Other; PATIENT VOMITED THE MEDICATION rv :32 Drug: NS 0.9% 1000 ml Route: IV; Rate: 1 bolus; Site: right antecubital; rv 02:25 Follow up: IV Status: Completed infusion; IV Intake: 1000ml rv 02:24 Drug: Phenergan 12.5 mg Route: IVP; Site: right antecubital; rv 03:51 Follow up: Response: No adverse reaction rv 02:24 Drug: ProTONIX 40 mg Route: IVP; Site: right antecubital; rv 03:51 Follow up: Response: No adverse reaction rv 02:25 Drug: GI Cocktail without - (Maalox Suspension 30 ml, Lidocaine Liquid 2 % 15 rv ml) Route: PO; 03:51 Follow up: Response: No adverse reaction rv 04:18 Not Given (Duplicate Order): Potassium Effervescent Tablet 50 mEq PO once; dissolve in rv 4 ounces of water or juice 04:18 Drug: Potassium Chloride 40 mEq Route: PO; rv 05:53 Follow up: Response: No adverse reaction rv 04:51 Drug: Ativan 0.5 mg Route: IVP; Site: right antecubital; bb 05:53 Follow up: Response: No adverse reaction rv Disposition: 06/12/20 03:17 Discharged to Home. Impression: Nausea and vomiting, Hypokalemia. - Condition is Stable. - Discharge Instructions: Dehydration, Adult, Nausea and Vomiting, Adult, Hypokalemia. - Prescriptions for Zofran 4 mg Oral Tablet - take 1 tablet by ORAL route every 12 hours As needed; 20 tablet. - Medication Reconciliation Form, Thank You Letter, Antibiotic Education, Prescription Opioid Use form. - Follow up: Private Physician; When: Upon discharge from the Emergency Department; Reason: Recheck today's complaints, Continuance of care, Re-evaluation by your physician. - Problem is an ongoing problem. - Symptoms have improved. Signatures: Dispatcher [employer] EDMS Zuly Coles, LAMONT RN Shirley Villavicencio Terrence, MD MD tw4 Michele Mason RN RN rv Corrections: (The following items were deleted from the chart) 02:57 01:12 CORONAVIRUS+ ordered. EDNE EDMS 03:18 03:17 06/12/2020 03:17 Discharged to Home. Impression: Nausea and vomiting. Condition tw4 is Stable. Forms are Medication Reconciliation Form, Thank You Letter, Antibiotic Education, Prescription Opioid Use. Follow up: Private Physician; When: Upon discharge from the Emergency Department; Reason: Recheck today's complaints, Continuance of care, Re-evaluation by your physician. Problem is an ongoing problem. Symptoms have improved. tw4 05:05 01:12 Chest Single View+[id number].BRZ ordered. [facility] 05:54 03:18 06/12/2020 03:17 Discharged to Home. Impression: Nausea and vomiting; rv Hypokalemia. Condition is Stable. Discharge Instructions: Dehydration, Adult, Nausea and Vomiting, Adult, Hypokalemia. Prescriptions for Zofran 4 mg Oral Tablet - take 1 tablet by ORAL route every 12 hours As needed; 20 tablet. and Forms are Medication Reconciliation Form, Thank You Letter, Antibiotic Education, Prescription Opioid Use. Follow up: Private Physician; When: Upon discharge from the Emergency Department; Reason: Recheck today's complaints, Continuance of care, Re-evaluation by your physician. Problem is an ongoing problem. Symptoms have improved. tw4
--- NOTE | 2020-06-12 03:19 | ER ---
Nurse's Notes [facility] Name: Jevon Wilkins Age: 20 yrs Sex: Male : 2000 Arrival Date: 06/12/2020 Time: 01:00 Bed 5 Private MD: Diagnosis: Nausea and vomiting;Hypokalemia Presentation: 06/12 01:12 Chief complaint: Patient states: NAUSEA AND VOMITING FOR THREE DAYS WITH SOB. ABDOMINAL rv PAIN, EPIGASTRIC AREA, BURNING SENSATION. Coronavirus screen: Client denies travel out of the [place] in the last 14 days. nausea, shortness of breath, vomiting. Client presents with at least one sign or symptom that may indicate coronavirus-19. Standard/surgical mask placed on the client. Provider contacted for isolation considerations. The client indicates previous COVID test results are pending. Date of collection: June 11, 2020 results are pending. [facility] ER. Ebola Screen: No symptoms or risks identified at this time. Initial Sepsis Screen: Does the patient meet any 2 criteria? No. Patient's initial sepsis screen is negative. Does the patient have a suspected source of infection? No. Patient's initial sepsis screen is negative. Risk Assessment: Do you want to hurt yourself or someone else? Patient reports no desire to harm self or others. Onset of symptoms was June 10, 2020. 01:12 Method Of Arrival: Ambulatory rv 01:12 Acuity: KATIE 3 rv Triage Assessment: 01:18 General: Appears uncomfortable, Behavior is anxious, restless. Respiratory: Reports rv shortness of breath at rest Onset: The symptoms/episode began/occurred yesterday, the patient has mild shortness of breath. Historical: - Allergies: 01:15 No Known Allergies; rv - Home Meds: 01:15 None [Active]; rv - PMHx: 01:15 Depression; rv - PSHx: 01:15 None; rv - Immunization history:: Adult Immunizations up to date. - Social history:: Smoking status: Patient reports the use of cigarette tobacco products, smokes one pack cigarettes per day. Screenin:16 Abuse screen: Denies threats or abuse. Denies injuries from another. Nutritional rv screening: No deficits noted. Tuberculosis screening: No symptoms or risk factors identified. Fall Risk None identified. Assessment: 01:15 GI: Pt is actively vomiting bile, Reports upper abdominal pain, nausea, vomiting. rv 01:17 Pain: Complains of pain in epigastric area Pain radiates to mid-sternal area. Neuro: rv Level of Consciousness is awake, alert, obeys commands, Oriented to person, place, time, situation. Cardiovascular: Patient's skin is warm and dry. Rhythm is sinus rhythm. Respiratory: Airway is patent Respiratory effort is even, Breath sounds are clear bilaterally. Derm: Skin is intact. 02:22 Reassessment: PATIENT IS ACTIVELY VOMITING. REFERRED TO DR PANTOJA. NEW ORDERS RECEIVED. rv GIVEN MEDICATIONS ORDERED. 03:06 Reassessment: PATIENT IS STILL COMPLAINING OF NAUSEA AND SOB. OXYGEN SATURATION IS AT rv 100% ROOM AIR. PATIENT IS LAYING ON HIS BACK ON THE BED, COMFORTABLY. VITAL SIGNS STABLE. 04:51 Reassessment: pt rolling around on stretcher burping repeatedly states he is still bb feeling nauseous Dr Pantoja notified pt medicated see OCT. 04:55 Reassessment: on further questioning pt admits to recent use of marijuana. bb 05:15 Reassessment: pt resting quietly states he is feeling a little better but still feels bb short of breath will continue to monitor pt. Vital Signs: 01:12 Weight 77.11 kg; Height 5 ft. 10 in. (177.80 cm); Pain 10/10; rv 01:13 BP 154 / 94; Pulse 79; Resp 18; Temp 98.7(TE); Pulse Ox 100% on R/A; oe 02:21 BP 130 / 79; Pulse 67; Resp 17; Pulse Ox 99% on R/A; rv 03:08 BP 102 / 80; Pulse 75; Resp 18; Pulse Ox 100% on R/A; rv 04:37 BP 132 / 98; Pulse 77; Resp 18; Pulse Ox 100% on R/A; oe 05:53 BP 121 / 86; Pulse 75; Resp 16; Temp 98.5; Pulse Ox 99% on R/A; rv 01:12 Body Mass Index 24.39 (77.11 kg, 177.80 cm) rv ED Course: 01:00 Patient arrived in ED. cl3 01:08 Devendra Pantoja MD is Attending Physician. tw4 01:12 Michele Mason RN is Primary Nurse. rv 01:15 Triage completed. rv 01:16 Arm band placed on right wrist. Patient placed in the treatment room, on a stretcher, rv Patient notified of wait time. 01:18 Patient has correct armband on for positive identification. Pulse ox on. NIBP on. rv 01:30 No provider procedures requiring assistance completed. Inserted saline lock: 20 gauge rv in right antecubital area, using aseptic technique. Blood collected. 01:30 Initial lab(s) drawn, by me, sent to lab. rv 05:54 IV discontinued, intact, bleeding controlled, No redness/swelling at site. Pressure rv dressing applied. Administered Medications: 01:28 Drug: Zofran (Ondansetron) 4 mg Route: IVP; Site: right antecubital; wh 02:25 Follow up: Response: No adverse reaction rv 01:28 Drug: GI Cocktail without - (Maalox Suspension 30 ml, Lidocaine Liquid 2 % 15 wh ml) Route: PO; 02:23 Follow up: Response: Other; PATIENT VOMITED THE MEDICATION rv 01:32 Drug: NS 0.9% 1000 ml Route: IV; Rate: 1 bolus; Site: right antecubital; rv 02:25 Follow up: IV Status: Completed infusion; IV Intake: 1000ml rv 02:24 Drug: Phenergan 12.5 mg Route: IVP; Site: right antecubital; rv 03:51 Follow up: Response: No adverse reaction rv 02:24 Drug: ProTONIX 40 mg Route: IVP; Site: right antecubital; rv 03:51 Follow up: Response: No adverse reaction rv 02:25 Drug: GI Cocktail without - (Maalox Suspension 30 ml, Lidocaine Liquid 2 % 15 rv ml) Route: PO; 03:51 Follow up: Response: No adverse reaction rv 04:18 Not Given (Duplicate Order): Potassium Effervescent Tablet 50 mEq PO once; dissolve in rv 4 ounces of water or juice 04:18 Drug: Potassium Chloride 40 mEq Route: PO; rv 05:53 Follow up: Response: No adverse reaction rv 04:51 Drug: Ativan 0.5 mg Route: IVP; Site: right antecubital; bb 05:53 Follow up: Response: No adverse reaction rv Intake: 02:25 IV: 1000ml; Total: 1000ml. rv Outcome: 03:17 Discharge ordered by twHam 05:54 Discharged to home ambulatory. rv 05:54 Condition: improved 05:54 Discharge instructions given to patient, Instructed on discharge instructions, follow up and referral plans. medication usage, Demonstrated understanding of instructions, follow-up care, medications, Prescriptions given X 1. 05:54 Patient left the ED. rv Signatures: Zuly Coles, RN RN Dallas Couch Winsy wh Wadley, Terrence, MD MD tw4 Michele Mason RN RN Yuridia Bautista cl3
[2020-06-12] MEDS ORDERED: POTASSIUM CL SA 10 MEQ TAB PO ONE (04:26)
[2020-06-12] MEDS ORDERED: LORazepam 2 MG/ML VIAL ONE (05:00)
[2020-06-12 06:10] VITALS: BP 121/86; TEMP 98.5; O2SAT 99
== END 2020-06-12 05:54 | disposition home or self-care (01) ==
LOC: ER 00:57
DX: E87.6 Hypokalemia (principal); Z20.828 Contact with and (suspected) exposure to other viral communicable diseases; R11.2 Nausea with vomiting, unspecified; F17.210 Nicotine dependence, cigarettes, uncomplicated
CPT/HCPCS: 36415; 80048; 80076; 83690; 85025; 87070; 87081; 87804; 96361; 96374; 96375; 99284; C9113; J2405; J2550; J7030; U0003

== ENCOUNTER 2020-07-26 21:48 | Emergency (ER) | payer BC, SELFPAY ==
[2020-07-26] MEDS ORDERED: LIDOCAINE VISCOUS 2% SOLN 15 ML UDC ONE (22:17)
[2020-07-26] MEDS ORDERED: MAGNES/ALUMIN/SIMET 30ML UCUP ONE (22:17)
[2020-07-27] MEDS ORDERED: ONDANSETRON 4 MG/2 ML VIAL ONE (01:23)
[2020-07-27] MEDS ORDERED: NA CHLORIDE 0.9% 1,000 ML ONE ×2 (01:24→03:12)
[2020-07-27] MEDS ORDERED: MAGNES/ALUMIN/SIMET 30ML UCUP ONE (01:41)
[2020-07-27] MEDS ORDERED: LIDOCAINE VISCOUS 2% SOLN 15 ML UDC ONE (01:41)
[2020-07-27] MEDS ORDERED: MORPHINE 2 MG/ML SYR ONE ×2 (01:41→03:12)
[2020-07-27 01:42] LABS: Basophils % 0.1 % (0-1.3); Hematocrit 43.8 % (39.6-49.0); Lymphocytes % 7.7 % (15.3-44.8); MPV 10.3 fL (7.6-11.3); RBC Red Blood Cell Count 4.98 M/uL (4.33-5.43)
[2020-07-27 01:53] LABS: Albumin 4.3 g/dL (3.4-5.0); Bilirubin Direct 0.1 mg/dL (0-0.2); Bilirubin Total 0.5 mg/dL (0.2-1.0); Potassium 3.3 mmol/L (3.5-5.1); Protein, Total 7.4 g/dL (6.4-8.2)
[2020-07-27] MEDS ORDERED: FAMOTIDINE 20 MG/2 ML VIAL IV ONE (02:39)
[2020-07-27] MEDS ORDERED: NS KCL 20MEQ 1,000 ML IV ONE (03:12)
--- NOTE | 2020-07-27 03:27 | ER ---
Nurse's Notes [facility] Name: Jevon Wilkins Age: 20 yrs Sex: Male : 2000 Arrival Date: 07/26/2020 Time: 21:50 Bed 30 Private MD: Diagnosis: Vomiting;Abdominal tenderness;Dyspnea;Hypokalemia;Elevated white blood cell count;Left sided colitis Presentation: 07/26 21:53 Chief complaint: Patient states: "I've been throwing up, I can't breathe, my chest aj1 hurts, I'm just miserable." Denies fever. Patient also reports abdominal pain. Coronavirus screen: Client denies travel out of the [place] in the last 14 days. Client presents with at least one sign or symptom that may indicate coronavirus-19. Ebola Screen: Patient denies travel to an Ebola-affected area in the 21 days before illness onset. Initial Sepsis Screen: Does the patient meet any 2 criteria? No. Patient's initial sepsis screen is negative. Does the patient have a suspected source of infection? Yes: Acute abdominal pain. Risk Assessment: Do you want to hurt yourself or someone else? Patient reports no desire to harm self or others. Onset of symptoms was July 26, 2020. 21:53 Method Of Arrival: Ambulatory aj1 21:53 Acuity: KATIE 3 aj1 22:05 Note Patient states that the last time he had this type of pain he was having really aj1 bad acid reflux, patient is requesting a GI cocktail. Notified Dr. Beltran. Order received. Triage Assessment: 21:55 General: Appears uncomfortable, Behavior is anxious, restless. Pain: Complains of pain aj1 in chest and abdomen. Neuro: Level of Consciousness is awake, alert, obeys commands, Oriented to person, place, time, situation. Cardiovascular: Patient's skin is warm and dry. Respiratory: Airway is patent Respiratory effort is even, unlabored, Respiratory pattern is regular, symmetrical. GI: Reports nausea, vomiting. Historical: - Allergies: 21:55 No Known Allergies; aj1 - Home Meds: 21:55 None [Active]; aj1 - PMHx: 21:55 Depression; aj1 - PSHx: 21:55 None; aj1 - Immunization history:: Adult Immunizations up to date. - Social history:: Smoking status: Patient/guardian denies using tobacco. Screenin/18 01:14 Abuse screen: Denies threats or abuse. Denies injuries from another. Nutritional rv screening: No deficits noted. Tuberculosis screening: No symptoms or risk factors identified. Fall Risk None identified. Assessment: 01:13 General: Appears ill, Behavior is calm, cooperative. Pain: Complains of pain in chest rv and abdomen. Neuro: Level of Consciousness is awake, alert, obeys commands, Oriented to person, place, time, situation. Cardiovascular: Patient's skin is warm and dry. Respiratory: Airway is patent Respiratory effort is even, unlabored. GI: Abdomen is flat, Pt is actively vomiting bile. Derm: Skin is intact. Vital Signs: 07/26 21:53 Pulse 86; Resp 20; Temp 97.3; Pulse Ox 100% on R/A; Weight 77.11 kg (R); Height 5 ft. 9 aj1 in. (175.26 cm) (R); Pain 10/10; 21:53 Body Mass Index 25.10 (77.11 kg, 175.26 cm) aj1 ED Course: 21:50 Patient arrived in ED. am2 21:55 Triage completed. aj1 21:55 Arm band placed on. aj1 07/27 00:57 Michele Mason, LAMONT is Primary Nurse. rv 01:03 Rubén Beltran MD is Attending Physician. russell 01:13 Initial lab(s) drawn, by md, sent to lab. Inserted saline lock: 20 gauge in right rv antecubital area, using aseptic technique. Blood collected. 01:14 Patient has correct armband on for positive identification. residential monitor on. Pulse rv ox on. NIBP on. 03:27 Harry Patel MD is Referral Physician. russell 05:31 No provider procedures requiring assistance completed. IV discontinued, intact, rv bleeding controlled, No redness/swelling at site. Pressure dressing applied. Administered Medications: 07/26 22:06 Drug: GI Cocktail without - (Maalox Suspension 30 ml, Lidocaine Liquid 2 % 15 aj1 ml) Route: PO; 07/27 01:12 Drug: Zofran (Ondansetron) 4 mg Route: IVP; Site: right antecubital; rv 05:48 Follow up: Response: No adverse reaction rv 01:13 Drug: NS 0.9% 1000 ml Route: IV; Rate: 1 bolus; Site: right antecubital; rv 05:48 Follow up: IV Status: Completed infusion; IV Intake: 1000ml rv 01:25 CANCELLED (Duplicate Order): Zofran (Ondansetron) 4 mg IVP once; over 2 minutes sg 01:25 CANCELLED (Duplicate Order): NS 0.9% 1000 ml IV at 1 bolus Per protocol; 1000 mL bolus sg 01:30 Drug: morphine 2 mg {Note: rass 0.} Route: IVP; Site: right antecubital; rv 02:53 Follow up: Response: No adverse reaction; RASS: Alert and Calm (0) rv 01:30 Drug: GI Cocktail without - (Maalox Suspension 30 ml, Lidocaine Liquid 2 % 15 rv ml) Route: PO; 05:47 Follow up: Response: No adverse reaction rv 02:26 Drug: Pepcid 20 mg Route: IVP; Site: right antecubital; rv 05:47 Follow up: Response: No adverse reaction rv 02:53 CANCELLED (Duplicate Order): morphine 2 mg IVP once; RASS on ADMIN: Combtv4, Very rv Agttd3, Agttd2, Rstlss1, AlertClm0, Drwsy-1, Lt Sdtn-2, Mod Sdtn-3, Dp Sdtn-4, UnArsble-5 03:03 Drug: morphine 2 mg Route: IVP; Site: right antecubital; rv 05:47 Follow up: Response: No adverse reaction; Marked relief of symptoms; Pain is decreased; rv RASS: Alert and Calm (0) 03:03 Drug: NS 0.9% 1000 ml Route: IV; Rate: 1 bolus; Site: right antecubital; rv 05:47 Follow up: IV Status: Completed infusion; IV Intake: 1000ml rv 03:03 Drug: NS 0.9% with KCl 20 mEq/L 1000 ml Route: IV; Rate: 500 ml/hr; Site: right rv antecubital; 05:47 Follow up: IV Status: Completed infusion; IV Intake: 500ml rv 04:03 Drug: Cipro 400 mg Volume: 200 ml; Route: IVPB; Infused Over: 60 mins; Site: right rv antecubital; 05:46 Follow up: IV Status: Completed infusion; IV Intake: 200ml rv 04:03 Drug: Flagyl 500 mg Volume: 100 ml; Route: IVPB; Rate: 200 ml/hr; Infused Over: 30 rv mins; Site: right antecubital; 05:32 Follow up: IV Status: Completed infusion rv 05:02 Drug: Phenergan 12.5 mg Route: IVP; Site: right antecubital; rv 05:32 Follow up: Response: No adverse reaction; Nausea is decreased rv Intake: 05:46 IV: 200ml; Total: 200ml. rv 05:47 IV: 500ml; Total: 700ml. rv 05:47 IV: 1000ml; Total: 1700ml. rv 05:48 IV: 1000ml; Total: 2700ml. rv Outcome: 03:27 Discharge ordered by MD. wells 05:31 Discharged to home ambulatory. rv 05:31 Condition: improved 05:31 Discharge instructions given to patient, Instructed on discharge instructions, follow up and referral plans. medication usage, Demonstrated understanding of instructions, follow-up care, medications, Prescriptions given X 6 05:48 Patient left the ED. rv Signatures: Suzanne Pires RN RN aj1 Rubén Beltran MD MD cha Moreno, Amanda am2 Vicente, Ronaldo, RN RN rv Gay, Steven RN sg
--- NOTE | 2020-07-27 03:27 | EDPHYS ---
Physician Documentation [facility] Name: Jevon Wilkins Age: 20 yrs Sex: Male : 2000 Arrival Date: 07/26/2020 Time: 21:50 Bed 30 Private MD: ED Physician Rubén Beltran HPI: 07/27 01:19 This 20 yrs old Male presents to ER via Ambulatory with complaints of russell Nausea/Vomiting, Shortness Of Breath. 01:19 The patient presents to the emergency department with nausea, vomiting, abdominal pain, russell of the right upper quadrant, left upper quadrant, right lower quadrant and left lower quadrant. Onset: The symptoms/episode began/occurred 2 day(s) ago. Possible causes: unknown. The symptoms are aggravated by nothing. The symptoms are alleviated by nothing. Associated signs and symptoms: Pertinent positives: nausea, vomiting. Severity of symptoms: At their worst the symptoms were moderate in the emergency department the symptoms are unchanged. The patient has not experienced similar symptoms in the past. Historical: - Allergies: 07/26 21:55 No Known Allergies; aj1 - Home Meds: 21:55 None [Active]; aj1 - PMHx: 21:55 Depression; aj1 - PSHx: 21:55 None; aj1 - Immunization history:: Adult Immunizations up to date. - Social history:: Smoking status: Patient/guardian denies using tobacco. ROS: 07/27 01:20 Constitutional: Negative for fever, chills, and weight loss, Eyes: Negative for injury, russell pain, redness, and discharge, ENT: Negative for injury, pain, and discharge, Neck: Negative for injury, pain, and swelling, Cardiovascular: Negative for chest pain, palpitations, and edema, Back: Negative for injury and pain, : Negative for injury, bleeding, discharge, and swelling, MS/Extremity: Negative for injury and deformity, Skin: Negative for injury, rash, and discoloration, Neuro: Negative for headache, weakness, numbness, tingling, and seizure. Respiratory: Positive for shortness of breath. Abdomen/GI: Positive for abdominal pain, nausea and vomiting, of the right upper quadrant, left upper quadrant, right lower quadrant and left lower quadrant. Exam: 01:20 Constitutional: This is a well developed, well nourished patient who is awake, alert, russell and in no acute distress. Head/Face: Normocephalic, atraumatic. Eyes: Pupils equal round and reactive to light, extra-ocular motions intact. Lids and lashes normal. Conjunctiva and sclera are non-icteric and not injected. Cornea within normal limits. Periorbital areas with no swelling, redness, or edema. ENT: Nares patent. No nasal discharge, no septal abnormalities noted. Tympanic membranes are normal and external auditory canals are clear. Oropharynx with no redness, swelling, or masses, exudates, or evidence of obstruction, uvula midline. Mucous membranes moist. Neck: Trachea midline, no thyromegaly or masses palpated, and no cervical lymphadenopathy. Supple, full range of motion without nuchal rigidity, or vertebral point tenderness. No Meningismus. Chest/axilla: Normal chest wall appearance and motion. Nontender with no deformity. No lesions are appreciated. Cardiovascular: Regular rate and rhythm with a normal S1 and S2. No gallops, murmurs, or rubs. Normal PMI, no JVD. No pulse deficits. Respiratory: Lungs have equal breath sounds bilaterally, clear to auscultation and percussion. No rales, rhonchi or wheezes noted. No increased work of breathing, no retractions or nasal flaring. Back: No spinal tenderness. No costovertebral tenderness. Full range of motion. Male : Normal genitalia with no discharge or lesions. Skin: Warm, dry with normal turgor. Normal color with no rashes, no lesions, and no evidence of cellulitis. MS/ Extremity: Pulses equal, no cyanosis. Neurovascular intact. Full, normal range of motion. Neuro: Awake and alert, GCS 15, oriented to person, place, time, and situation. Cranial nerves II-XII grossly intact. Motor strength 5/5 in all extremities. Sensory grossly intact. Cerebellar exam normal. Normal gait. Psych: Awake, alert, with orientation to person, place and time. Behavior, mood, and affect are within normal limits. 01:20 Abdomen/GI: Inspection: bruising, Bowel sounds: normal, Palpation: mild abdominal tenderness, in all quadrants, Liver: no appreciated palpable abnormalities, Hernia: not appreciated. 01:23 ECG was reviewed by the Attending Physician. russell 02:36 Musculoskeletal/extremity: DVT Exam: No signs of deep vein thrombosis. no pain, no russell swelling, no tenderness, negative Homans' sign noted on exam, no appreciated bluish discoloration, no erythema, no increased warmth. Vital Signs: 07/26 21:53 Pulse 86; Resp 20; Temp 97.3; Pulse Ox 100% on R/A; Weight 77.11 kg (R); Height 5 ft. 9 aj1 in. (175.26 cm) (R); Pain 10/10; 21:53 Body Mass Index 25.10 (77.11 kg, 175.26 cm) aj1 MDM: 07/27 01:03 Patient medically screened. [facility] 01:21 Antibiotic administration: Not indicated. Differential diagnosis: Nonspecific abd pain, russell gastritis, cholecystitis, pancreatitis, viral gastroenteritis, gastroenteritis. The patient's Wells Deep Vein Thrombosis Score was calculated as follows: Total Score: 0-2 Pts- Low Risk. The patient's pulmonary embolism risk score was calculated as follows: Total Score: 3-6 points. This patient was found to be at moderate risk for a pulmonary embolism by using the Well's assessment criteria. Immunization status:. Data reviewed: vital signs, nurses notes, lab test result(s), EKG, radiologic studies, CT scan, plain films. Data interpreted: hospital intern: rate is 86 beats/min, rhythm is regular, Pulse oximetry: on room air is 100 %. Test interpretation: by ED physician or midlevel provider: ECG, plain radiologic studies. Counseling: I had a detailed discussion with the patient and/or guardian regarding: the historical points, exam findings, and any diagnostic results supporting the discharge/admit diagnosis, lab results, radiology results. 07/27 01:43 Order name: CBC with Automated Diff; Complete Time: 02:34 EDME 07/27 01:53 Order name: Basic Metabolic Panel; Complete Time: 02:34 EDME 07/27 01:19 Order name: Chest Single View XRAY [facility] 07/27 01:19 Order name: CT Abd/Pelvis - IV Contrast Only [facility] 07/27 01:54 Order name: Liver (Hepatic) Function; Complete Time: 02:34 EDME 07/27 01:54 Order name: Lipase; Complete Time: 02:34 [facility] 07/27 03:26 Order name: Urine Dipstick--Ancillary (enter results) tt3 07/26 22:06 Order name: EKG - Nurse/Tech; Complete Time: 22:06 aj1 07/27 01:19 Order name: IV Saline Lock; Complete Time: :30 russell 07/27 01:19 Order name: Labs collected and sent; Complete Time: :30 [facility] EC: Rate is 99 beats/min. Rhythm is regular. QRS Early Branch is Normal. NC interval is shortened russell at 108 msec. QRS interval is normal. QT interval is normal. No Q waves. T waves are Normal. No ST changes noted. Clinical impression: NSR w/ Non-specific ST/T Changes and No evidence of ischemia. Interpreted by me. Reviewed by me. Administered Medications: 07/26 22:06 Drug: GI Cocktail without - (Maalox Suspension 30 ml, Lidocaine Liquid 2 % 15 aj1 ml) Route: PO; 07/27 01:12 Drug: Zofran (Ondansetron) 4 mg Route: IVP; Site: right antecubital; rv 05:48 Follow up: Response: No adverse reaction rv 01:13 Drug: NS 0.9% 1000 ml Route: IV; Rate: 1 bolus; Site: right antecubital; rv 05:48 Follow up: IV Status: Completed infusion; IV Intake: 1000ml rv 01:25 CANCELLED (Duplicate Order): Zofran (Ondansetron) 4 mg IVP once; over 2 minutes sg 01:25 CANCELLED (Duplicate Order): NS 0.9% 1000 ml IV at 1 bolus Per protocol; 1000 mL bolus sg 01:30 Drug: morphine 2 mg {Note: rass 0.} Route: IVP; Site: right antecubital; rv 02:53 Follow up: Response: No adverse reaction; RASS: Alert and Calm (0) rv 01:30 Drug: GI Cocktail without - (Maalox Suspension 30 ml, Lidocaine Liquid 2 % 15 rv ml) Route: PO; 05:47 Follow up: Response: No adverse reaction rv 02:26 Drug: Pepcid 20 mg Route: IVP; Site: right antecubital; rv 05:47 Follow up: Response: No adverse reaction rv 02:53 CANCELLED (Duplicate Order): morphine 2 mg IVP once; RASS on ADMIN: Combtv4, Very rv Agttd3, Agttd2, Rstlss1, AlertClm0, Drwsy-1, Lt Sdtn-2, Mod Sdtn-3, Dp Sdtn-4, UnArsble-5 03:03 Drug: morphine 2 mg Route: IVP; Site: right antecubital; rv 05:47 Follow up: Response: No adverse reaction; Marked relief of symptoms; Pain is decreased; rv RASS: Alert and Calm (0) 03:03 Drug: NS 0.9% 1000 ml Route: IV; Rate: 1 bolus; Site: right antecubital; rv 05:47 Follow up: IV Status: Completed infusion; IV Intake: 1000ml rv 03:03 Drug: NS 0.9% with KCl 20 mEq/L 1000 ml Route: IV; Rate: 500 ml/hr; Site: right rv antecubital; 05:47 Follow up: IV Status: Completed infusion; IV Intake: 500ml rv 04:03 Drug: Cipro 400 mg Volume: 200 ml; Route: IVPB; Infused Over: 60 mins; Site: right rv antecubital; 05:46 Follow up: IV Status: Completed infusion; IV Intake: 200ml rv 04:03 Drug: Flagyl 500 mg Volume: 100 ml; Route: IVPB; Rate: 200 ml/hr; Infused Over: 30 rv mins; Site: right antecubital; 05:32 Follow up: IV Status: Completed infusion rv 05:02 Drug: Phenergan 12.5 mg Route: IVP; Site: right antecubital; rv 05:32 Follow up: Response: No adverse reaction; Nausea is decreased rv Disposition: 07/27/20 03:27 Discharged to Home. Impression: Vomiting, Abdominal tenderness, Dyspnea, Hypokalemia, Elevated white blood cell count, Left sided colitis. - Condition is Stable. - Discharge Instructions: Abdominal Pain, Adult, Potassium Content of Foods, Nausea and Vomiting, Adult, Shortness of Breath, Shortness of Breath, Tbyd-cn-Yynr, Nausea and Vomiting, Adult, Pqnn-pn-Lydx, Abdominal Pain, Adult, Vleg-ju-Wksb, Hypokalemia, Colitis. - Prescriptions for Bentyl 20 mg Oral Tablet - take 1 tablet by ORAL route every 6 hours As needed; 20 tablet. Pepcid 20 mg Oral Tablet - take 1 tablet by ORAL route every 12 hours for 10 days; 20 tablet. Zofran 4 mg Oral Tablet - take 1 tablet by ORAL route every 12 hours As needed; 20 tablet. Phenergan 25 mg Rectal Suppository - insert 1 suppository by RECTAL route every 6 hours As needed; 12 suppository. Flagyl 500 mg Oral Tablet - take 1 tablet by ORAL route every 8 hours for 7 days; 21 tablet. Cipro 500 mg Oral Tablet - take 1 tablet by ORAL route every 12 hours for 7 days; 14 tablet. - Medication Reconciliation Form, Thank You Letter, Antibiotic Education, Prescription Opioid Use form. - Follow up: Private Physician; When: 2 - 3 days; Reason: Recheck today's complaints, Continuance of care, Re-evaluation by your physician. Follow up: Harry Patel MD; When: 2 - 3 days; Reason: Recheck today's complaints, Re-evaluation by your physician. - Problem is new. - Symptoms have improved. Signatures: Dispatcher [employer] EDMS Suzanne Pires RN RN aj1 Donte Vega RN RN sg Anderson, Corey, MD MD cha Vicente, Ronaldo RN RN rv Corrections: (The following items were deleted from the chart) 01:25 01:19 Zofran (Ondansetron) 4 mg IVP once; over 2 minutes ordered. [facility] 01:25 01:19 NS 0.9% 1000 ml IV at 1 bolus Per protocol; 1000 mL bolus ordered. [facility] 02:53 02:52 morphine 2 mg IVP once; RASS on ADMIN: Combtv4, Very Agttd3, Agttd2, Rstlss1, rv AlertClm0, Drwsy-1, Lt Sdtn-2, Mod Sdtn-3, Dp Sdtn-4, UnArsble-5 ordered. rv 03:27 03:27 07/27/2020 03:27 Discharged to Home. Impression: Vomiting; Abdominal tenderness; russell Dyspnea; Hypokalemia; Elevated white blood cell count; Left sided colitis. Condition is Stable. Discharge Instructions: Abdominal Pain, Adult, Potassium Content of Foods, Nausea and Vomiting, Adult, Shortness of Breath, Shortness of Breath, Cves-rg-Mbfz, Nausea and Vomiting, Adult, Lwzg-ma-Ctbw, Abdominal Pain, Adult, Lyhn-yi-Reuq, Hypokalemia. Prescriptions for Bentyl 20 mg Oral Tablet - take 1 tablet by ORAL route every 6 hours As needed; 20 tablet, Pepcid 20 mg Oral Tablet - take 1 tablet by ORAL route every 12 hours for 10 days; 20 tablet, Zofran 4 mg Oral Tablet - take 1 tablet by ORAL route every 12 hours As needed; 20 tablet, Phenergan 25 mg Rectal Suppository - insert 1 suppository by RECTAL route every 6 hours As needed; 12 suppository. and Forms are Medication Reconciliation Form, Thank You Letter, Antibiotic Education, Prescription Opioid Use. Follow up: Private Physician; When: 2 - 3 days; Reason: Recheck today's complaints, Continuance of care, Re-evaluation by your physician. Problem is new. Symptoms have improved. [facility] 05:48 03:27 07/27/2020 03:27 Discharged to Home. Impression: Vomiting; Abdominal tenderness; rv Dyspnea; Hypokalemia; Elevated white blood cell count; Left sided colitis. Condition is Stable. Discharge Instructions: Abdominal Pain, Adult, Potassium Content of Foods, Nausea and Vomiting, Adult, Shortness of Breath, Shortness of Breath, Cmxn-sw-Rspg, Nausea and Vomiting, Adult, Xvzf-vu-Djjp, Abdominal Pain, Adult, Cvfn-cl-Vdzt, Hypokalemia. Prescriptions for Bentyl 20 mg Oral Tablet - take 1 tablet by ORAL route every 6 hours As needed; 20 tablet, Pepcid 20 mg Oral Tablet - take 1 tablet by ORAL route every 12 hours for 10 days; 20 tablet, Zofran 4 mg Oral Tablet - take 1 tablet by ORAL route every 12 hours As needed; 20 tablet, Phenergan 25 mg Rectal Suppository - insert 1 suppository by RECTAL route every 6 hours As needed; 12 suppository. and Forms are Medication Reconciliation Form, Thank You Letter, Antibiotic Education, Prescription Opioid Use. Follow up: Private Physician; When: 2 - 3 days; Reason: Recheck today's complaints, Continuance of care, Re-evaluation by your physician. Follow up: Harry Patel; When: 2 - 3 days; Reason: Recheck today's complaints, Re-evaluation by your physician. Problem is new. Symptoms have improved. russell
[2020-07-27] MEDS ORDERED: CIPROFLOXACIN 400mg IV 400 MG/200 ML BAG IV ONE (04:14)
[2020-07-27] MEDS ORDERED: METRONIDAZOLE 500mg IVPB 500 MG/100 ML BAG IV ONE (04:14)
[2020-07-27] MEDS ORDERED: PROMETHAZINE INJ 25 MG/ML AMP ONE (05:11)
--- NOTE | 2020-07-27 08:47 | RAD REPORT ---
EXAM DESCRIPTION: RAD - Chest Single View - 07/27/2020 7:31 am CLINICAL HISTORY: ABDOMINAL DISTENTION COMPARISON: April 27, 2020 TECHNIQUE: AP portable chest image was obtained 07/27/2020 7:31 am . FINDINGS: Lungs are clear. Heart and vasculature are normal. No measurable pleural effusion and no p neumothorax. No acute bony abnormality seen. No acute aortic findings suspected. IMPRESSION: No acute cardiopulmonary process. No significant change from comparison study.
[2020-07-27 12:21] LABS: Urine Blood NEGATIVE (NEG); Urine Glucose NEGATIVE (NEG); Urine Protein NEGATIVE (NEG); Urine Specific Gravity 1.015 (1.005-1.030); Urine pH 6.5 (5.0-7.0)
--- NOTE | 2020-07-29 16:24 | RAD REPORT ---
EXAM DESCRIPTION: CT - Abdomen Pelvis W Contrast - 07/27/2020 6:40 am CLINICAL HISTORY: ABD PAIN TECHNIQUE: Contiguous axial images obtained through the abdomen and pelvis without IV contrast. Kimberly nal and sagittal reformatted images were provided. This exam was performed according to our departmental dose-optimization program, which includes autom ated exposure control, adjustment of the mA and/or kV according to patient size and/or use of iterati ve reconstruction technique. COMPARISON: 07/27/2020 FINDINGS: Lung bases: Clear Liver: Grossly unremarkable Gallbladder and biliary system: Vicarious excretion of contrast within the gallbladder. 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 No calculi. No hydronephrosis. Bowel: No obstruction. No appreciable mucosal thickening. Appendix: Normal caliber appendix. No findings to suggest acute appendicitis. Urinary bladder: Unremarkable Reproductive: Unremarkable as visualized Lymph nodes: No pathologically enlarged lymph nodes. Peritoneum: No focal fluid collection. No free air. Vessels: No abdominal aortic aneurysm. Abdominal wall: Tiny fat-containing umbilical hernia. Bones: Unremarkable IMPRESSION: No acute abnormality identified within the abdomen and pelvis. 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 The interpreting radiologist is fully responsible for the content of the report.
[2020-07-30 11:07] VITALS: TEMP 97.3; O2SAT 100
== END 2020-07-27 05:48 | disposition home or self-care (01) ==
LOC: ER 21:48
DX: E87.6 Hypokalemia (principal); K51.50 Left sided colitis without complications; D72.829 Elevated white blood cell count, unspecified; R06.00 Dyspnea, unspecified; R10.819 Abdominal tenderness, unspecified site
CPT/HCPCS: 36415; 71045; 74177; 80048; 80076; 81003; 83690; 85025; 93005; 96361; 96365; 96366; 96368; 96375; 99284; J0744; J2270; J2405; J2550; J3480; J7030; Q9967

== ENCOUNTER 2020-07-27 23:18 | Emergency (ER) | payer BC, SELFPAY ==
[2020-07-28 00:10] LABS: Absolute Lymphocytes (CBC) 1.1 K/uL (0.7-4.9); Basophils % 0.2 % (0-1.3); Hematocrit 44.7 % (39.6-49.0); Lymphocytes % 11.1 % (15.3-44.8); MPV 10.3 fL (7.6-11.3); RBC Red Blood Cell Count 5.07 M/uL (4.33-5.43)
[2020-07-28] MEDS ORDERED: ONDANSETRON 4 MG/2 ML VIAL ONE (00:28)
[2020-07-28] MEDS ORDERED: NA CHLORIDE 0.9% 1,000 ML ONE ×2 (00:29→01:58)
[2020-07-28] MEDS ORDERED: FAMOTIDINE 20 MG/2 ML VIAL IV ONE (00:29)
[2020-07-28 00:32] LABS: ALT/SGPT 36 U/L (12-78); AST/SGOT 16 U/L (15-37); Albumin 4.1 g/dL (3.4-5.0); Alkaline Phosphatase 45 U/L (45-117); BUN Blood Urea Nitrogen 9 mg/dL (7-18); Bicarbonate 25 mmol/L (21-32); Bilirubin Direct 0.2 mg/dL (0-0.2); Bilirubin Total 0.7 mg/dL (0.2-1.0); Glucose Level 102 mg/dL (74-106); Lipase 111 U/L (73-393); Potassium 3.7 mmol/L (3.5-5.1); Protein, Total 7.1 g/dL (6.4-8.2); Sodium Level 141 mmol/L (136-145)
[2020-07-28] MEDS ORDERED: MAGNES/ALUMIN/SIMET 30ML UCUP ONE (01:00)
[2020-07-28] MEDS ORDERED: LIDOCAINE VISCOUS 2% SOLN 15 ML UDC ONE (01:01)
[2020-07-28 01:41] LABS: Urine Blood NEGATIVE (NEG); Urine Glucose NEGATIVE (NEG); Urine Protein NEGATIVE (NEG); Urine Specific Gravity 1.015 (1.005-1.030)
[2020-07-28] MEDS ORDERED: MORPHINE 4 MG/ML SYR ONE (01:58)
[2020-07-28] MEDS ORDERED: PROMETHAZINE INJ 25 MG/ML AMP ONE (01:58)
[2020-07-28 02:10] LABS: Barbiturates NEGATIVE (NEGATIVE); Benzodiazepines NEGATIVE (NEGATIVE); Cocaine NEGATIVE (NEGATIVE); METHAMPHETAM NEGATIVE (NEGATIVE); Methadone NEGATIVE (NEGATIVE); Opiates NEGATIVE (NEGATIVE); Phencyclidine NEGATIVE (NEGATIVE); THC Cannibis POSITIVE (NEGATIVE)
--- NOTE | 2020-07-28 03:14 | EDPHYS ---
Physician Documentation [facility] Name: Jevon Wilkins Age: 20 yrs Sex: Male : 2000 Arrival Date: 07/27/2020 Time: 23:22 Bed 16 Private MD: ED Physician Jose Wheat HPI: 07/28 00:24 This 20 yrs old Male presents to ER via Ambulatory with complaints of mh7 Epigastric Pain. 00:24 The patient presents with abdominal pain in the epigastric area. Onset: The mh7 symptoms/episode began/occurred today. The symptoms do not radiate. Associated signs and symptoms: Pertinent positives: nausea and vomiting, Pertinent negatives: anorexia, blood in stools, chest pain, constipation, diarrhea, dysuria, fever, headache, hematuria, palpitations, shortness of breath, testicular pain, vomiting blood. The symptoms are described as intermittent, vague, waxing/waning. Modifying factors: The symptoms are alleviated by nothing, the symptoms are aggravated by drinking, food. Severity of pain: At its worst the pain was moderate today, in the emergency department the pain is unchanged. The patient has been recently seen at the [facility] Emergency Department, yesterday. Historical: - Allergies: 07/27 23:32 No Known Allergies; sg - PMHx: 23:32 Depression; sg - PSHx: 23:32 None; sg - Immunization history:: Adult Immunizations up to date. - Social history:: Smoking status: Patient denies any tobacco usage or history of. ROS: 07/28 00:24 Constitutional: Negative for fever, chills, and weight loss, Eyes: Negative for injury, mh7 pain, redness, and discharge, ENT: Negative for injury, pain, and discharge, Neck: Negative for injury, pain, and swelling, Cardiovascular: Negative for chest pain, palpitations, and edema, Respiratory: Negative for shortness of breath, cough, wheezing, and pleuritic chest pain, Back: Negative for injury and pain, : Negative for injury, bleeding, discharge, and swelling, MS/Extremity: Negative for injury and deformity, Skin: Negative for injury, rash, and discoloration, Neuro: Negative for headache, weakness, numbness, tingling, and seizure, Psych: Negative for depression, anxiety, suicide ideation, homicidal ideation, and hallucinations, Allergy/Immunology: Negative for hives, rash, and allergies, Endocrine: Negative for neck swelling, polydipsia, polyuria, polyphagia, and marked weight changes, Hematologic/Lymphatic: Negative for swollen nodes, abnormal bleeding, and unusual bruising. Exam: 00:24 Constitutional: This is a well developed, well nourished patient who is awake, alert, mh7 and in no acute distress. Head/Face: Normocephalic, atraumatic. Eyes: Pupils equal round and reactive to light, extra-ocular motions intact. Lids and lashes normal. Conjunctiva and sclera are non-icteric and not injected. Cornea within normal limits. Periorbital areas with no swelling, redness, or edema. Neck: Trachea midline, no thyromegaly or masses palpated, and no cervical lymphadenopathy. Supple, full range of motion without nuchal rigidity, or vertebral point tenderness. No Meningismus. Chest/axilla: Normal chest wall appearance and motion. Nontender with no deformity. No lesions are appreciated. Cardiovascular: Regular rate and rhythm with a normal S1 and S2. No gallops, murmurs, or rubs. Normal PMI, no JVD. No pulse deficits. Respiratory: Lungs have equal breath sounds bilaterally, clear to auscultation and percussion. No rales, rhonchi or wheezes noted. No increased work of breathing, no retractions or nasal flaring. 00:24 Back: No spinal tenderness. No costovertebral tenderness. Full range of motion. Skin: Warm, dry with normal turgor. Normal color with no rashes, no lesions, and no evidence of cellulitis. MS/ Extremity: Pulses equal, no cyanosis. Neurovascular intact. Full, normal range of motion. Neuro: Awake and alert, GCS 15, oriented to person, place, time, and situation. Cranial nerves II-XII grossly intact. Motor strength 5/5 in all extremities. Sensory grossly intact. Cerebellar exam normal. Normal gait. Psych: Awake, alert, with orientation to person, place and time. Behavior, mood, and affect are within normal limits. 00:24 Abdomen/GI: Inspection: abdomen appears normal, Bowel sounds: normal, in all quadrants, Palpation: mild abdominal tenderness, in the epigastric area, Rectal exam: the exam is deferred, because of patient request, Indicators: McBurney's point is not tender, Castaneda's sign is negative, Rovsing's sign is negative, Obturator sign is negative, Psoas sign is negative, Liver: no appreciated palpable abnormalities, Hernia: not appreciated. Vital Signs: 07/27 23:31 BP 149 / 78 RA Supine (auto/reg); Pulse 77; Resp 18; Temp 99.1(O); Pulse Ox 99% on R/A; jp3 Weight 74.84 kg (R); Height 5 ft. 9 in. (175.26 cm) (R); Pain 5/10; 07/28 01:00 BP 142 / 64; Pulse 75; Resp 16; Pulse Ox 100% on R/A; jb4 01:45 BP 151 / 126; Pulse 64; Resp 16; Pulse Ox 100% on R/A; jb4 03:00 BP 128 / 69; Pulse 66; Resp 16; Pulse Ox 99% on R/A; jb4 07/27 23:31 Body Mass Index 24.37 (74.84 kg, 175.26 cm) 3 MDM: 03:10 Differential diagnosis: appendicitis, bowel obstruction, cholecystitis, diverticulitis, mh7 gastritis, gastroesophageal reflux disease, non-specific abd pain, pancreatitis, Peptic Ulcer Disease, substance abuse. Data reviewed: vital signs, nurses notes, old medical records, lab test result(s), CBC, electrolytes, urinalysis, urine drug screen, radiologic studies, CT scan. Data interpreted: Pulse oximetry: on room air is 99 %. Interpretation: normal. Counseling: I had a detailed discussion with the patient and/or guardian regarding: the historical points, exam findings, and any diagnostic results supporting the discharge/admit diagnosis, lab results, radiology results, the need for outpatient follow up, to return to the emergency department if symptoms worsen or persist or if there are any questions or concerns that arise at home. Response to treatment: the patient's symptoms have resolved after treatment, the patient's blood pressure is in an acceptable range, mental status has returned to baseline, the patient no longer shows bradycardia, the patient is not short of breath, the patient is not tachycardic, the patient's pain is gone, the patient's temperature has normalized. 03:13 Patient medically screened. [facility] 07/27 23:52 Order name: Basic Metabolic Panel; Complete Time: :10 [facility] 07/27 23:52 Order name: CBC with Diff; Complete Time: 01:10 [facility] 07/27 23:52 Order name: Hepatic Function; Complete Time: 01:10 [facility] 07/27 23:52 Order name: Lipase; Complete Time: 01:10 [facility] 07/27 23:53 Order name: UDS; Complete Time: 02:18 7 07/28 01:10 Order name: ETOH Level; Complete Time: 02:03 [facility] 07/28 01:22 Order name: Urine Dipstick--Ancillary (enter results); Complete Time: 02:03 [facility] 07/28 01:42 Order name: CT Abd/Pelvis - Without Contrast [facility] 07/27 23:52 Order name: IV Saline Lock; Complete Time: 00:03 [facility] 07/27 23:52 Order name: Labs collected and sent; Complete Time: 00:03 [facility] 07/27 23:52 Order name: Urine Dipstick-Ancillary (obtain specimen); Complete Time: 01:17 Administered Medications: 00:20 Drug: Zofran (Ondansetron) 4 mg Route: IVP; Site: left antecubital; jb4 00:50 Follow up: Response: No adverse reaction; Nausea is decreased jb4 00:23 Drug: NS 0.9% 1000 ml Route: IV; Rate: 1000 ml; Site: left antecubital; jb4 01:30 Follow up: Response: No adverse reaction; IV Status: Completed infusion; IV Intake: jb4 1000ml 00:23 Drug: Pepcid 20 mg Route: IVP; Site: left antecubital; jb4 00:50 Follow up: Response: No adverse reaction jb4 00:45 Drug: GI Cocktail without - (Maalox Suspension 30 ml, Lidocaine Liquid 2 % 15 jb4 ml) Route: PO; 01:15 Follow up: Response: No adverse reaction; No change in condition jb4 01:45 Drug: Phenergan 12.5 mg Route: IVP; Site: left antecubital; jb4 02:15 Follow up: Response: No adverse reaction; Pain is decreased; Nausea is decreased jb4 01:50 Drug: morphine 4 mg Route: IVP; Site: left antecubital; jb4 02:15 Follow up: Response: No adverse reaction; Pain is decreased; RASS: Alert and Calm (0) jb4 01:50 Drug: NS 0.9% 1000 ml Route: IV; Rate: 1000 ml; Site: left antecubital; jb4 02:50 Follow up: Response: No adverse reaction; IV Status: Completed infusion; IV Intake: jb4 1000ml Disposition: 07/28/20 03:13 Discharged to Home. Impression: Unspecified abdominal pain, Vomiting, Cannabis abuse. - Condition is Stable. - Discharge Instructions: Cannabis Use Disorder, Nausea and Vomiting, Adult, Oazz-ma-Sgir, Abdominal Pain, Adult, Mpki-qf-Qaze. - Prescriptions for Zofran ODT 4 mg Oral tablet,disintegrating - place 1 tablet by TRANSLINGUAL route every 8 hours As needed; 6 tablet. - Medication Reconciliation Form, Thank You Letter, Antibiotic Education, Prescription Opioid Use form. - Follow up: Private Physician; When: 1 - 2 days; Reason: Worsening of condition, Recheck today's complaints, Continuance of care, Re-evaluation by your physician. - Problem is an ongoing problem. - Symptoms have improved. Signatures: Dispatcher [employer] EDMS Donte Vega RN RN Ge Tripp RN RN jb4 Jose Wheat MD MD mh7 Corrections: (The following items were deleted from the chart) 03:28 03:13 07/28/2020 03:13 Discharged to Home. Impression: Unspecified abdominal pain; jb4 Vomiting; Cannabis abuse. Condition is Stable. Forms are Medication Reconciliation Form, Thank You Letter, Antibiotic Education, Prescription Opioid Use. Follow up: Private Physician; When: 1 - 2 days; Reason: Worsening of condition, Recheck today's complaints, Continuance of care, Re-evaluation by your physician. Problem is an ongoing problem. Symptoms have improved. mh7
--- NOTE | 2020-07-28 03:14 | ER ---
Nurse's Notes [facility] Name: Jevon Wilkins Age: 20 yrs Sex: Male : 2000 Arrival Date: 07/27/2020 Time: 23:22 Bed 16 Private MD: Diagnosis: Unspecified abdominal pain;Vomiting;Cannabis abuse Presentation: 07/27 23:29 Chief complaint: Patient states: I was here last night, was feeling better with the IV sg fluids, but when I got home, I started vomiting again, wasn't able to keep the medication they prescribed down into my system, just kept throwing it up. Still having pain as well, mostly epigastric area at this time. Coronavirus screen: Client denies travel out of the [place] in the last 14 days. At this time, the client does not indicate any symptoms associated with coronavirus-19. Ebola Screen: Patient negative for fever greater than or equal to 101.5 degrees Fahrenheit, and additional compatible Ebola Virus Disease symptoms Patient denies exposure to infectious person. Patient denies travel to an Ebola-affected area in the 21 days before illness onset. No symptoms or risks identified at this time. Initial Sepsis Screen: Does the patient meet any 2 criteria? No. Patient's initial sepsis screen is negative. Does the patient have a suspected source of infection? No. Patient's initial sepsis screen is negative. Risk Assessment: Do you want to hurt yourself or someone else? Patient reports no desire to harm self or others. Onset of symptoms was July 27, 2020. Care prior to arrival: None. Transition of care: patient was not received from another setting of care. 23:29 Acuity: KATIE 3 sg 23:29 Method Of Arrival: Ambulatory sg Historical: - Allergies: 23:32 No Known Allergies; sg - PMHx: 23:32 Depression; sg - PSHx: 23:32 None; sg - Immunization history:: Adult Immunizations up to date. - Social history:: Smoking status: Patient denies any tobacco usage or history of. Screenin:45 Abuse screen: Denies threats or abuse. Nutritional screening: No deficits noted. jb4 Tuberculosis screening: No symptoms or risk factors identified. Fall Risk None identified. Assessment: 23:45 General: Appears in no apparent distress. uncomfortable, Behavior is calm, cooperative, jb4 appropriate for age. Pain: Complains of pain in abdomen Pain does not radiate. Pain currently is 4 out of 10 on a pain scale. at worst was 10 out of 10 on a pain scale. Neuro: Level of Consciousness is awake, alert, obeys commands, Oriented to person, place, time, situation. Cardiovascular: Patient's skin is warm and dry. Respiratory: Airway is patent Respiratory effort is even, unlabored, Respiratory pattern is regular, symmetrical. GI: Abdomen is flat, non-distended, Reports lower abdominal pain, upper abdominal pain, nausea, vomiting. : No signs and/or symptoms were reported regarding the genitourinary system. EENT: No signs and/or symptoms were reported regarding the EENT system. Derm: Skin is intact, Skin is pink, warm \T\ dry. Musculoskeletal: Circulation, motion, and sensation intact. Range of motion: intact in all extremities. 07/28 01:00 Reassessment: Patient appears in no apparent distress at this time. Patient and/or jb4 family updated on plan of care and expected duration. Pain level reassessed. Patient is alert, oriented x 3, equal unlabored respirations, skin warm/dry/pink. 02:00 Reassessment: Patient appears in no apparent distress at this time. Patient and/or jb4 family updated on plan of care and expected duration. Pain level reassessed. Patient is alert, oriented x 3, equal unlabored respirations, skin warm/dry/pink. 03:02 Reassessment: Patient appears in no apparent distress at this time. Patient and/or jb4 family updated on plan of care and expected duration. Pain level reassessed. Patient is alert, oriented x 3, equal unlabored respirations, skin warm/dry/pink. Patient denies pain at this time. Patient states feeling better. Patient states symptoms have improved. Vital Signs: 07/27 23:31 BP 149 / 78 RA Supine (auto/reg); Pulse 77; Resp 18; Temp 99.1(O); Pulse Ox 99% on R/A; jp3 Weight 74.84 kg (R); Height 5 ft. 9 in. (175.26 cm) (R); Pain 5/10; 07/28 01:00 BP 142 / 64; Pulse 75; Resp 16; Pulse Ox 100% on R/A; jb4 01:45 BP 151 / 126; Pulse 64; Resp 16; Pulse Ox 100% on R/A; jb4 03:00 BP 128 / 69; Pulse 66; Resp 16; Pulse Ox 99% on R/A; jb4 07/27 23:31 Body Mass Index 24.37 (74.84 kg, 175.26 cm) 3 ED Course: 07/27 23:22 Patient arrived in ED. cl3 23:27 Jose Wheat MD is Attending Physician. 7 23:32 Triage completed. sg 23:32 Patient has correct armband on for positive identification. Bed in low position. Call 3 light in reach. Side rails up X 1. Warm blanket given. Verbal reassurance given. Pulse ox on. NIBP on. 23:32 Patient maintains SpO2 saturation greater than 95% on room air. jp3 23:45 Arm band placed on right wrist. jb4 23:59 Initial lab(s) drawn, by me, sent to lab. Inserted saline lock: 20 gauge in left 3 antecubital area, using aseptic technique. Blood collected. 07/28 00:00 Ge Tripp, RN is Primary Nurse. jb4 02:26 CT Abd/Pelvis - Without Contrast In Process Unspecified. EDMS 03:08 No provider procedures requiring assistance completed. jb4 03:26 IV discontinued, intact, bleeding controlled, No redness/swelling at site. Pressure jb4 dressing applied. Administered Medications: 00:20 Drug: Zofran (Ondansetron) 4 mg Route: IVP; Site: left antecubital; jb4 00:50 Follow up: Response: No adverse reaction; Nausea is decreased jb4 00:23 Drug: NS 0.9% 1000 ml Route: IV; Rate: 1000 ml; Site: left antecubital; jb4 01:30 Follow up: Response: No adverse reaction; IV Status: Completed infusion; IV Intake: jb4 1000ml 00:23 Drug: Pepcid 20 mg Route: IVP; Site: left antecubital; jb4 00:50 Follow up: Response: No adverse reaction jb4 00:45 Drug: GI Cocktail without - (Maalox Suspension 30 ml, Lidocaine Liquid 2 % 15 jb4 ml) Route: PO; 01:15 Follow up: Response: No adverse reaction; No change in condition jb4 01:45 Drug: Phenergan 12.5 mg Route: IVP; Site: left antecubital; jb4 02:15 Follow up: Response: No adverse reaction; Pain is decreased; Nausea is decreased jb4 01:50 Drug: morphine 4 mg Route: IVP; Site: left antecubital; jb4 02:15 Follow up: Response: No adverse reaction; Pain is decreased; RASS: Alert and Calm (0) jb4 01:50 Drug: NS 0.9% 1000 ml Route: IV; Rate: 1000 ml; Site: left antecubital; jb4 02:50 Follow up: Response: No adverse reaction; IV Status: Completed infusion; IV Intake: jb4 1000ml Intake: 01:30 IV: 1000ml; Total: 1000ml. jb4 02:50 IV: 1000ml; Total: 2000ml. jb4 Outcome: 03:13 Discharge ordered by . eliana 03:26 Discharged to home ambulatory. jb4 03:26 Condition: stable 03:26 Discharge instructions given to patient, Instructed on discharge instructions, follow up and referral plans. medication usage, Demonstrated understanding of instructions, follow-up care, medications, Prescriptions given X 1. 03:28 Patient left the ED. jb4 Signatures: Dispatcher [employer] EDMS Donte Vega RN RN Ge Lucero RN RN jb4 Donato Medina Charde cl3 Holmes, Maurice, MD MD [id number]
--- NOTE | 2020-07-29 17:39 | RAD REPORT ---
EXAM DESCRIPTION: CT - Abdomen Pelvis Wo Contrast - 07/28/2020 7:02 am CLINICAL HISTORY: ABD PAIN TECHNIQUE: Contiguous axial images obtained through the abdomen and pelvis without IV contrast. Kimberly nal and sagittal reformatted images were provided. This exam was performed according to our departmental dose-optimization program, which includes autom ated exposure control, adjustment of the mA and/or kV according to patient size and/or use of iterati ve reconstruction technique. COMPARISON: 07/27/2020 FINDINGS: Lung bases: Clear Liver: Grossly unremarkable Gallbladder and biliary system: Vicarious excretion of contrast within the gallbladder. 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 No calculi. No hydronephrosis. Bowel: No obstruction. No appreciable mucosal thickening. Appendix: Normal caliber appendix. No findings to suggest acute appendicitis. Urinary bladder: Unremarkable Reproductive: Unremarkable as visualized Lymph nodes: No pathologically enlarged lymph nodes. Peritoneum: No focal fluid collection. No free air. Vessels: No abdominal aortic aneurysm. Abdominal wall: Tiny fat-containing umbilical hernia. Bones: Unremarkable IMPRESSION: No acute abnormality identified within the abdomen and pelvis. Electronically signed by: Jeison Winkler MD 07/28/2020 3:01 AM [employer] AD[employer]ER Due to temporary technical issues with the PACS/Fluency reporting system, reports are being signed by the in house radiologists without review as a courtesy to insure prompt reporting. The interpreting radiologist is fully responsible for the content of the report.
[2020-07-30 20:27] VITALS: TEMP 99.1
[2020-07-30 20:29] VITALS: O2SAT 100
[2020-07-30 20:30] VITALS: BP 151/126
== END 2020-07-28 03:28 | disposition home or self-care (01) ==
LOC: ER 23:18
DX: R11.2 Nausea with vomiting, unspecified (principal); F12.10 Cannabis abuse, uncomplicated
CPT/HCPCS: 36415; 74176; 80048; 80076; 80307; 80320; 81003; 83690; 85025; 96361; 96374; 96375; 99284; J2405; J2550; J7030

== ENCOUNTER 2020-07-28 14:47 | Emergency (ER) | payer BC, SELFPAY ==
[2020-07-28 15:38] LABS: Absolute Lymphocytes (CBC) 1.5 K/uL (0.7-4.9); Basophils % 0.1 % (0-1.3); Hematocrit 43.4 % (39.6-49.0); MPV 10.4 fL (7.6-11.3); RBC Red Blood Cell Count 4.91 M/uL (4.33-5.43)
[2020-07-28] MEDS ORDERED: ONDANSETRON 4 MG/2 ML VIAL ONE (15:39)
[2020-07-28] MEDS ORDERED: DIPHENHYDRAMINE 50 MG/ML VIAL ONE (15:39)
[2020-07-28] MEDS ORDERED: NA CHLORIDE 0.9% 1,000 ML ONE (15:40)
[2020-07-28] MEDS ORDERED: PANTOPRAZOLE 40 MG INJ ONE (15:40)
[2020-07-28 15:57] LABS: Potassium 3.2 mmol/L (3.5-5.1)
[2020-07-28 15:58] LABS: Albumin 4.1 g/dL (3.4-5.0); Bilirubin Direct 0.3 mg/dL (0-0.2)
[2020-07-28] MEDS ORDERED: LIDOCAINE VISCOUS 2% SOLN 15 ML UDC ONE (15:59)
[2020-07-28] MEDS ORDERED: MAGNES/ALUMIN/SIMET 30ML UCUP ONE (15:59)
[2020-07-28] MEDS ORDERED: PROMETHAZINE INJ 25 MG/ML AMP ONE (16:21)
[2020-07-28] MEDS ORDERED: POTASSIUM 25 MEQ EFFERV TAB ONE (16:33)
--- NOTE | 2020-07-28 17:45 | RAD REPORT ---
EXAM DESCRIPTION: RAD - Abdomen W Erect - 07/28/2020 5:00 pm CLINICAL HISTORY: nausea/vomiting COMPARISON: Abdomen Pelvis Wo Contrast dated 07/28/2020 TECHNIQUE: Supine and upright views of the abdomen were obtained. FINDINGS: Bowel gas pattern is nonspecific with no obstruction, free air or pneumatosis. No abnormal calcifications. No soft tissue abnormality. No significant bony finding. IMPRESSION: Negative two-view abdomen examination. No suspicion for change from the earlier CT study.
[2020-07-28] MEDS ORDERED: HALOPERIDOL LACT 5 MG/ML INJ ONE (17:57)
--- NOTE | 2020-07-28 18:50 | ER ---
Nurse's Notes [facility] Name: Jevon Wilkins Age: 20 yrs Sex: Male : 2000 Arrival Date: 07/28/2020 Time: 14:48 Bed 18 Private MD: Diagnosis: Nausea and vomiting Presentation: 07/28 14:56 Chief complaint: Patient states: abd pain, n/v x 2 days. States that he was here in the ER for the past 2 days. Coronavirus screen: Client denies travel out of the [place] in the last 14 days. At this time, the client does not indicate any symptoms associated with coronavirus-19. Ebola Screen: No symptoms or risks identified at this time. Risk Assessment: Do you want to hurt yourself or someone else? Patient reports no desire to harm self or others. Onset of symptoms was July 26, 2020. 14:56 Method Of Arrival: Ambulatory 14:56 Acuity: KATIE 2 14:56 Initial Sepsis Screen: Does the patient meet any 2 criteria? RR > 20 per min. No. sv Patient's initial sepsis screen is negative. Does the patient have a suspected source of infection? No. Patient's initial sepsis screen is negative. Historical: - Allergies: 14:58 No Known Allergies; sv - PMHx: 14:58 Depression; sv - PSHx: 14:58 None; sv - Immunization history:: Adult Immunizations up to date, Flu vaccine is not up to date. - Social history:: Smoking status: Patient reports the use of cigarette tobacco products, smokes one-half pack cigarettes per day, Patient uses alcohol, occasionally. Patient/guardian denies using street drugs. Screenin:10 Abuse screen: Denies threats or abuse. Denies injuries from another. Nutritional mg2 screening: No deficits noted. Tuberculosis screening: No symptoms or risk factors identified. Fall Risk IV access (20 points). Assessment: 15:29 General: Appears uncomfortable, Behavior is cooperative, anxious, restless. Pain: vg1 Complains of pain in abdomen Pain currently is 10 out of 10 on a pain scale. Pain began 2-3 days ago. 15:29 Neuro: Level of Consciousness is awake, alert, obeys commands, Oriented to person, vg1 place, time. Cardiovascular: Patient's skin is warm and dry. Respiratory: Airway is patent Respiratory effort is even, unlabored, Respiratory pattern is regular, symmetrical. GI: Bowel sounds present X 4 quads. Abd is soft X 4 quads Abdomen is tender to palpation. GI: Reports diarrhea, nausea, vomiting, sharp pain. : No signs and/or symptoms were reported regarding the genitourinary system. EENT: No signs and/or symptoms were reported regarding the EENT system. Derm: Skin is pink, warm \T\ dry. Musculoskeletal: Range of motion: intact in all extremities. 15:55 Reassessment: Patient actively vomiting. Witnessed patient self induce vomiting; vg1 patient placed finger down throatl. Notified provider. 16:45 Reassessment: No changes from previously documented assessment. Patient and/or family vg1 updated on plan of care and expected duration. Pain level reassessed. Patient is alert, oriented x 3, equal unlabored respirations, skin warm/dry/pink. 17:55 Reassessment: No changes from previously documented assessment. Patient and/or family vg1 updated on plan of care and expected duration. Pain level reassessed. Patient is alert, oriented x 3, equal unlabored respirations, skin warm/dry/pink. Vital Signs: 14:56 BP 144 / 112; Pulse 65; Resp 22; Temp 98.7; Pulse Ox 100% ; Weight 74.84 kg; Height 5 sv ft. 9 in. (175.26 cm); Pain 8/10; 15:50 BP 134 / 88; Pulse 65; Resp 18; Pulse Ox 100% on R/A; vg1 16:15 BP 110 / 79; Pulse 64; Resp 16; Pulse Ox 100% on R/A; vg1 19:11 BP 113 / 76; Pulse 70; Resp 18; Temp 98; Pulse Ox 100% on R/A; mg2 14:56 Body Mass Index 24.37 (74.84 kg, 175.26 cm) sv ED Course: 14:48 Patient arrived in ED. rg4 14:50 Rubén Gaona PA is PHCP. cp 14:50 Jaydon Riggins MD is Attending Physician. cp 14:57 Triage completed. sv 14:59 Arm band placed on Patient placed in an exam room, on a stretcher. sv 15:14 Elana Montes, RN is Primary Nurse. vg1 15:32 Inserted saline lock: 20 gauge in right antecubital area, using aseptic technique. sv Blood collected. 17:00 XRAY Abdomen With Erect In Process Unspecified. EDMS 19:11 Patient has correct armband on for positive identification. Pulse ox on. NIBP on. Door mg2 closed. 19:11 No provider procedures requiring assistance completed. IV discontinued, intact, mg2 bleeding controlled, No redness/swelling at site. Pressure dressing applied. Administered Medications: 15:35 Drug: NS 0.9% 1000 ml Route: IV; Rate: 1 bolus; Site: right antecubital; vg1 19:10 Follow up: Response: No adverse reaction; IV Status: Completed infusion; IV Intake: mg2 1000ml 15:35 Drug: ProTONIX 40 mg Route: IVP; Site: right antecubital; vg1 16:04 Follow up: Response: No adverse reaction; Pain is unchanged, physician notified vg1 15:35 Drug: Benadryl 25 mg Route: IVP; Site: right antecubital; vg1 16:04 Follow up: Response: No adverse reaction vg1 15:35 Drug: Zofran (Ondansetron) 4 mg Route: IVP; Site: right antecubital; vg1 16:04 Follow up: Response: Nausea unchanged vg1 15:49 Drug: GI Cocktail without - (Maalox Suspension 30 ml, Lidocaine Liquid 2 % 15 vg1 ml) Route: PO; 19:10 Follow up: Response: No adverse reaction mg2 16:13 Drug: Phenergan 25 mg Route: IVP; Site: right antecubital; vg1 19:10 Follow up: Response: No adverse reaction mg2 16:34 Drug: Potassium Effervescent Tablet 50 mEq Route: PO; vg1 19:10 Follow up: Response: No adverse reaction mg2 17:55 Drug: Haloperidol Lactate 5 mg Route: IM; Site: right gluteus; vg1 19:10 Follow up: Response: No adverse reaction mg2 19:09 Drug: Bentyl 20 mg Route: PO; mg2 19:09 Follow up: Response: No adverse reaction; Medication administered at discharge. mg2 Intake: 19:10 IV: 1000ml; Total: 1000ml. mg2 Outcome: 18:49 Discharge ordered by . cp 19:11 Discharged to home ambulatory, with family. mg2 19:11 Condition: good 19:11 Discharge instructions given to patient, family, Instructed on discharge instructions, follow up and referral plans. medication usage, Demonstrated understanding of instructions, follow-up care, medications, Prescriptions given X 3. 19:11 Patient left the ED. mg2 Signatures: Dispatcher [employer] Shanon Ocampo RN RN sv Rubén Gaona PA PA cp Garcia, Rubi rg4 Venancio Purdy RN RN mg2 Elana Montes RN RN vg1 Corrections: (The following items were deleted from the chart) 14:59 14:56 Temp 98.7F; 74.84 kg; Height 5 ft. 9 in.; BMI: 24.3; Pain 8/10; sv sv 14:59 14:56 Acuity: KATIE 3 sv sv 19:50 15:55 Reassessment: Patient actively vomiting. Notified provider vg1 vg1
--- NOTE | 2020-07-28 18:50 | EDPHYS ---
Physician Documentation [facility] Name: Jevon Wilkins Age: 20 yrs Sex: Male : 2000 Arrival Date: 07/28/2020 Time: 14:48 Bed 18 Private MD: ED Physician Jaydon Riggins HPI: 07/28 15:10 This 20 yrs old Male presents to ER via Ambulatory with complaints of cp Abdominal Pain, Vomiting. 15:10 The patient presents with abdominal pain in the epigastric area. cp 15:10 Onset: The symptoms/episode began/occurred 2 day(s) ago. cp 15:10 The symptoms do not radiate. cp 15:10 Associated signs and symptoms: Pertinent positives: nausea and vomiting, Pertinent cp negatives: diarrhea, testicular pain, vomiting blood. Historical: - Allergies: 14:58 No Known Allergies; sv - PMHx: 14:58 Depression; sv - PSHx: 14:58 None; sv - Immunization history:: Adult Immunizations up to date, Flu vaccine is not up to date. - Social history:: Smoking status: Patient reports the use of cigarette tobacco products, smokes one-half pack cigarettes per day, Patient uses alcohol, occasionally. Patient/guardian denies using street drugs. ROS: 15:20 Constitutional: Positive for poor PO intake, Negative for fever. cp 15:20 Abdomen/GI: Positive for abdominal pain, nausea and vomiting, Negative for diarrhea, constipation, hematemesis. 15:20 Cardiovascular: Negative for chest pain. cp 15:20 Eyes: Negative for injury, pain, redness, and discharge. cp 15:20 ENT: Negative for ear pain, sore throat, difficulty swallowing, difficulty handling secretions. 15:20 Respiratory: Negative for cough, shortness of breath, wheezing. 15:20 Neuro: Negative for headache. 15:20 All other systems are negative. Exam: 15:20 Head/Face: Normocephalic, atraumatic. cp 15:20 Constitutional: The patient appears in no acute distress, alert, awake, non-toxic, well developed, well nourished, uncomfortable. 15:20 Eyes: Periorbital structures: appear normal, Conjunctiva: normal, no exudate, no injection, Sclera: no appreciated abnormality, Lids and lashes: appear normal, bilaterally. 15:20 ENT: External ear(s): are unremarkable, Nose: is normal, Posterior pharynx: Airway: no evidence of obstruction, patent. 15:20 Neck: ROM/movement: is normal, is supple, without pain, no range of motions limitations. 15:20 Chest/axilla: Inspection: normal. 15:20 Cardiovascular: Rate: normal, Rhythm: regular. 15:20 Respiratory: the patient does not display signs of respiratory distress, Respirations: normal, no use of accessory muscles, no retractions, labored breathing, is not present, Breath sounds: are clear throughout, no decreased breath sounds. 15:20 Abdomen/GI: Inspection: abdomen appears normal, Bowel sounds: active, all quadrants, Palpation: soft, in all quadrants, moderate abdominal tenderness, in all quadrants, involuntary guarding, is not appreciated. 15:20 Neuro: Orientation: to person, place \T\ time. Mentation: is normal. Vital Signs: 14:56 BP 144 / 112; Pulse 65; Resp 22; Temp 98.7; Pulse Ox 100% ; Weight 74.84 kg; Height 5 sv ft. 9 in. (175.26 cm); Pain 8/10; 15:50 BP 134 / 88; Pulse 65; Resp 18; Pulse Ox 100% on R/A; vg1 16:15 BP 110 / 79; Pulse 64; Resp 16; Pulse Ox 100% on R/A; vg1 19:11 BP 113 / 76; Pulse 70; Resp 18; Temp 98; Pulse Ox 100% on R/A; mg2 14:56 Body Mass Index 24.37 (74.84 kg, 175.26 cm) sv MDM: 15:03 Patient medically screened. 18:48 Data reviewed: vital signs, nurses notes, lab test result(s), and as a result, I will cp discharge patient. 18:48 Counseling: I had a detailed discussion with the patient and/or guardian regarding: the cp historical points, exam findings, and any diagnostic results supporting the discharge/admit diagnosis, lab results, to return to the emergency department if symptoms worsen or persist or if there are any questions or concerns that arise at home. Response to treatment: the patient's symptoms have markedly improved after treatment, VSS. Nausea and pain improved. Vomiting resolved. Will discharge to home for continued monitoring. 07/28 15:09 Order name: Basic Metabolic Panel; Complete Time: 16:05 cp 07/28 16:06 Interpretation: Normal except: K 3.2; CL 110; GFR 89. 07/28 15:09 Order name: CBC with Diff; Complete Time: 15:56 07/28 15:56 Interpretation: Normal except: WBC 11.3; GARY% 80.0; LYM% 13.0; NEUT A 9.1. 07/28 15:09 Order name: Hepatic Function; Complete Time: 16:05 07/28 15:09 Order name: Lipase; Complete Time: 16:05 07/28 16:22 Order name: XRAY Abdomen With Erect; Complete Time: 17:46 cp 07/28 17:50 Interpretation: Report reviewed. 07/28 15:09 Order name: IV Saline Lock; Complete Time: 15:40 07/28 15:09 Order name: Labs collected and sent; Complete Time: 15:40 cp Administered Medications: 15:35 Drug: NS 0.9% 1000 ml Route: IV; Rate: 1 bolus; Site: right antecubital; vg1 19:10 Follow up: Response: No adverse reaction; IV Status: Completed infusion; IV Intake: mg2 1000ml 15:35 Drug: ProTONIX 40 mg Route: IVP; Site: right antecubital; vg1 16:04 Follow up: Response: No adverse reaction; Pain is unchanged, physician notified vg1 15:35 Drug: Benadryl 25 mg Route: IVP; Site: right antecubital; vg1 16:04 Follow up: Response: No adverse reaction vg1 15:35 Drug: Zofran (Ondansetron) 4 mg Route: IVP; Site: right antecubital; vg1 16:04 Follow up: Response: Nausea unchanged vg1 15:49 Drug: GI Cocktail without - (Maalox Suspension 30 ml, Lidocaine Liquid 2 % 15 vg1 ml) Route: PO; 19:10 Follow up: Response: No adverse reaction mg2 16:13 Drug: Phenergan 25 mg Route: IVP; Site: right antecubital; vg1 19:10 Follow up: Response: No adverse reaction mg2 16:34 Drug: Potassium Effervescent Tablet 50 mEq Route: PO; vg1 19:10 Follow up: Response: No adverse reaction mg2 17:55 Drug: Haloperidol Lactate 5 mg Route: IM; Site: right gluteus; vg1 19:10 Follow up: Response: No adverse reaction mg2 19:09 Drug: Bentyl 20 mg Route: PO; mg2 19:09 Follow up: Response: No adverse reaction; Medication administered at discharge. mg2 Disposition: 07/29 07:32 Co-signature as Attending Physician, Jaydon Riggins MD. rn Disposition: 07/28/20 18:49 Discharged to Home. Impression: Nausea and vomiting. - Condition is Stable. - Discharge Instructions: Nausea and Vomiting, Adult. - Prescriptions for Protonix 40 mg Oral Tablet, Delayed Release (E.C.) - take 1 tablet by ORAL route once daily; 20 tablet. Phenergan 25 mg Rectal Suppository - insert 1 suppository by RECTAL route every 6 hours As needed; 12 suppository. promethazine 25 mg Oral Tablet - take 1 tablet by ORAL route every 6 hours As needed; 20 tablet. - Medication Reconciliation Form, Thank You Letter, Antibiotic Education, Prescription Opioid Use form. - Follow up: Private Physician; When: 1 - 2 days; Reason: Recheck today's complaints. - Problem is an ongoing problem. - Symptoms have improved. Signatures: Dispatcher [employer] Shanon Ocampo RN RN Jaydon Riggins MD MD rn Page, Corey, PA PA cp Venancio Purdy RN RN mg2 Elana Montes RN RN vg1 Corrections: (The following items were deleted from the chart) 07/28 19:11 18:49 07/28/2020 18:49 Discharged to Home. Impression: Nausea and vomiting. Condition mg2 is Stable. Forms are Medication Reconciliation Form, Thank You Letter, Antibiotic Education, Prescription Opioid Use. Follow up: Private Physician; When: 1 - 2 days; Reason: Recheck today's complaints. Problem is an ongoing problem. Symptoms have improved. cp
[2020-07-28] MEDS ORDERED: DICYCLOMINE HCL 10 MG CAP ONE (19:19)
[2020-07-31 01:59] VITALS: O2SAT 100
[2020-07-31 02:03] VITALS: BP 113/76; TEMP 98
== END 2020-07-28 19:11 | disposition home or self-care (01) ==
LOC: ER 14:47
DX: R11.2 Nausea with vomiting, unspecified (principal); F17.210 Nicotine dependence, cigarettes, uncomplicated
CPT/HCPCS: 36415; 74019; 80048; 80076; 83690; 85025; 96361; 96372; 96374; 96375; 99284; C9113; J1200; J1630; J2405; J2550; J7030

== ENCOUNTER 2024-01-01 01:44 | Emergency (ER) | payer BC ==
[2024-01-01] MEDS ORDERED: ONDANSETRON 4 MG/2 ML VIAL ONE ×2 (02:21→03:20)
[2024-01-01] MEDS ORDERED: NA CHLORIDE 0.9% 1,000 ML ONE (02:21)
[2024-01-01] MEDS ORDERED: METOCLOPRAMIDE 10 MG/2mL INJ ONE (02:34)
[2024-01-01 02:36] LABS: Absolute Eosinophils 0.1 K/uL (0-0.5); Absolute Lymphocytes (CBC) 0.6 K/uL (0.7-4.9); Absolute Monocytes 0.6 K/uL (0.1-1.3); Absolute Neutrophil 10.5 K/uL (1.8-8.0); Basophils % 0.1 % (0-1.3); Eosinophils % 0.5 % (0-4.4); Hematocrit 51.8 % (39.6-49.0); Hemoglobin 17.3 g/dL (13.6-17.9); Lymphocytes % 5.2 % (15.3-44.8); MCH 29.9 pg (27.0-35.0); MCHC 33.3 g/dL (32.0-36.0); MCV 89.8 fL (80-100); MPV 10.7 fL (7.6-11.3); Monocytes % 5.3 % (3.3-12.3); Neutrophils % 88.9 % (41.7-73.7); Nucleated Red Blood Cells % 0.1 % (0-0); Platelets 149 thou/uL (152-406); RBC Red Blood Cell Count 5.77 M/uL (4.33-5.43)
[2024-01-01 02:46] LABS: ALT/SGPT 21 U/L (16-61); Albumin 4.3 g/dL (3.4-5.0); Albumin/Globulin Ratio 1.4 (1.1-1.8); Alkaline Phosphatase 74 U/L (45-117); BUN Blood Urea Nitrogen 13 mg/dL (7-18); Bicarbonate 22 mEq/L (21-32); Bilirubin Total 1.7 mg/dL (0.2-1.0); Globulin 3.1 g/dL (2.3-3.5); Glomerular Filtration Rate 110 ml/min (=/>90); Glucose Level 126 mg/dL (74-106); Lipase 20 U/L (13-75); Protein, Total 7.4 g/dL (6.4-8.2); Sodium Level 135 mEq/L (136-145)
[2024-01-01 02:50] LABS: AST/SGOT < 10 U/L (15-37)
--- NOTE | 2024-01-01 02:55 | ER ---
Nurse's Notes [facility] Name: Jeovn Wilkins Age: 23 yrs Sex: Male : 2000 Arrival Date: 01/01/2024 Time: 01:44 Bed 8 Private MD: Diagnosis: Gastroenteritis Presentation: 12/31 01:53 Chief complaint: Patient states: generalized abdominal pain of 10 with nausea, vomiting pf1 with diarrhea,onset Thursday. 01:53 Coronavirus screen: Vaccine status: Patient reports being unvaccinated. Client denies pf1 travel out of the [place] in the last 14 days. Client presents with at least one sign or symptom that may indicate coronavirus-19. Ebola Screen: Patient negative for fever greater than or equal to 101.5 degrees Fahrenheit, and additional compatible Ebola Virus Disease symptoms. Initial Sepsis Screen: Does the patient meet any 2 criteria? No. Patient's initial sepsis screen is negative. Does the patient have a suspected source of infection? No. Patient's initial sepsis screen is negative. Risk Assessment: Do you want to hurt yourself or someone else? Patient reports no desire to harm self or others. Onset of symptoms was December 30, 2023. 01:53 Method Of Arrival: Ambulatory pf1 01:53 Acuity: KATIE 3 pf1 Triage Assessment: 01:55 General: Appears in no apparent distress. uncomfortable, well groomed, well developed, pf1 Behavior is cooperative, anxious. 01:55 Pain: Complains of pain in abdomen. GI: Abdomen is flat, non-distended, Reports lower pf1 abdominal pain, upper abdominal pain, diarrhea, nausea, vomiting. Historical: - Allergies: 02:04 No Known Allergies; pf1 - PMHx: 02:04 Depression; pf1 02:06 CHS; pf1 - PSHx: 02:04 None; pf1 - Immunization history:: Adult Immunizations not up to date, Client reports having NOT received the Covid vaccine. Last tetanus immunization: < 10 years ago Flu vaccine is not up to date. - Infectious Disease History:: Denies. - Social history:: Smoking status: Patient reports the use of cigarette tobacco products, smokes one pack cigarettes per day. Patient/guardian denies using alcohol, street drugs, the patient reports quitting approximately 3 years ago. Screenin:30 [facility] ED Fall Risk Assessment (Adult) History of falling in the last 3 months, tm6 including since admission No falls in past 3 months (0 pts) Confusion or Disorientation No (0 pts) Intoxicated or Sedated No (0 pts) Impaired Gait No (0 pts) Mobility Assist Device Used No (0 pt) Altered Elimination No (0 pt) Score/Fall Risk Level 0 - 2 = Low Risk Oriented to surroundings, Maintained a safe environment, Educated pt \T\ family on fall prevention, incl call for assistance when getting out of bed. Abuse screen: Denies threats or abuse. Denies injuries from another. Nutritional screening: No deficits noted. Tuberculosis screening: No symptoms or risk factors identified. Assessment: 02:30 General: Appears distressed, uncomfortable, Behavior is cooperative, anxious. Pain: tm6 Complains of pain in back and abdomen Pain currently is 10 out of 10 on a pain scale. Neuro: Level of Consciousness is awake, alert, obeys commands, Oriented to person, place, time, situation. Cardiovascular: No deficits noted. Patient's skin is warm and dry. Respiratory: Airway is patent Respiratory effort is labored, Respiratory pattern is tachypnea. GI: Abdomen is flat, non-distended, Abd is soft and non tender X 4 quads. Reports lower abdominal pain, upper abdominal pain, diarrhea, nausea, vomiting, since yesterday. : No signs and/or symptoms were reported regarding the genitourinary system. EENT: No signs and/or symptoms were reported regarding the EENT system. Derm: No signs and/or symptoms reported regarding the dermatologic system. Musculoskeletal: No signs and/or symptoms reported regarding the musculoskeletal system. Vital Signs: 01:53 BP 140 / 86; Pulse 89; Resp 16; Temp 97.4; Pulse Ox 100% on R/A; Weight 68.04 kg; pf1 Height 5 ft. 9 in. ; Pain 10/10; 03:26 BP 148 / 74; Pulse 90; Resp 19; Temp 97.5(TE); Pulse Ox 100% on R/A; Pain 2/10; tm6 01:53 Body Mass Index 22.15 (68.04 kg, 175.26 cm) pf1 01:53 Pain Scale: Adult pf1 03:26 Pain Scale: Adult tm6 ED Course: 01:46 Patient arrived in ED. [email or web address] 01:49 Ilsa Alaniz MD is Attending Physician. sp3 01:55 Norberto Villa, LAMONT is Primary Nurse. tm6 02:00 Triage completed. pf1 02:20 CBC with Diff Sent. tm6 02:20 CMP Sent. tm6 02:20 Lipase Sent. tm6 02:29 CBC with Diff Sent. tm6 02:30 CMP Sent. tm6 02:30 Lipase Sent. tm6 02:30 Inserted saline lock: 20 gauge in left antecubital area, using aseptic technique. tm6 02:30 Patient has correct armband on for positive identification. Placed in gown. Bed in low tm6 position. Call light in reach. Side rails up X 1. Provided Education on: use of call almanza. Client placed on continuous cardiac and pulse oximetry monitoring. NIBP monitoring applied. Pulse ox on. NIBP on. Door closed. Noise minimized. 02:30 Arm band placed on right wrist. tm6 03:26 No provider procedures requiring assistance completed. IV discontinued, intact, tm6 bleeding controlled, No redness/swelling at site. Pressure dressing applied. Administered Medications: 02:33 Drug: NS 0.9% IV 1000 ml IV at 1 bolus Per protocol; 1000 mL bolus Route: IV; Rate: 1 tm6 bolus; Site: left antecubital; 02:33 Drug: Ondansetron IVP 4 mg IVP once; over 2 minutes Route: IVP; Site: left antecubital; tm6 02:42 Drug: metoCLOPramide IVP 10 mg IVP once; over 1 to 2 minutes Route: IVP; Site: left tm6 antecubital; 03:26 Drug: Ondansetron IVP 4 mg IVP once; over 2 minutes Route: IVP; Site: left antecubital; tm6 Medication: 02:30 VIS not applicable for this client. tm6 Outcome: 02:54 Discharge ordered by . sp3 03:26 Discharged to home ambulatory, tm6 03:26 Condition: stable 03:26 Discharge instructions given to patient, Instructed on discharge instructions, follow up and referral plans. medication usage, Demonstrated understanding of instructions, follow-up care, medications, Prescriptions given X 2, 03:27 Patient left the ED. tm6 Signatures: Ilsa Alaniz MD MD sp3 Michelle Adorno [email or web address] Bridgette Toledo RN RN pf1 Norberto Villa RN RN tm6 Corrections: (The following items were deleted from the chart) 02:04 02:04 Triage completed. pf1 pf1 02:30 02:20 Urinalysis+U.LAB.BRZ drawn and sent. tm6 EDMS
--- NOTE | 2024-01-01 02:55 | EDPHYS ---
Physician Documentation [facility] Name: Jevon Wilkins Age: 23 yrs Sex: Male : 2000 Arrival Date: 01/01/2024 Time: 01:44 Bed 8 Private MD: ED Physician Ilsa Alaniz HPI: 12/31 02:51 This 23 yrs old Male presents to ER via Ambulatory with complaints of sp3 Nausea/Vomiting/Diarrhea. 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 Multiple CT scans in the past have all been negative. Patient states current symptoms been going on for 48 hours. He denies any chest pain, shortness of breath, fever, prior surgeries, potential bad food, travel history, known sick contacts, or any other signs or symptoms on ROS at this time.. Historical: - Allergies: 02:04 No Known Allergies; pf1 - PMHx: 02:04 Depression; pf1 02:06 CHS; pf1 - PSHx: 02:04 None; pf1 - Immunization history:: Adult Immunizations not up to date, Client reports having NOT received the Covid vaccine. Last tetanus immunization: < 10 years ago Flu vaccine is not up to date. - Infectious Disease History:: Denies. - Social history:: Smoking status: Patient reports the use of cigarette tobacco products, smokes one pack cigarettes per day. Patient/guardian denies using alcohol, street drugs, the patient reports quitting approximately 3 years ago. ROS: 02:52 Constitutional: Negative for fever, chills, and weight loss, Eyes: Negative for injury, sp3 pain, redness, and discharge, ENT: Negative for injury, pain, and discharge, Neck: Negative for injury, pain, and swelling, Cardiovascular: Negative for chest pain, palpitations, and edema, Respiratory: Negative for shortness of breath, cough, wheezing, and pleuritic chest pain, Back: Negative for injury and pain, MS/Extremity: Negative for injury and deformity, Skin: Negative for injury, rash, and discoloration, Neuro: Negative for headache, weakness, numbness, tingling, and seizure, Psych: Negative for depression, anxiety, suicide ideation, homicidal ideation, and hallucinations, Allergy/Immunology: Negative for hives, rash, and allergies, Endocrine: Negative for neck swelling, polydipsia, polyuria, polyphagia, and marked weight changes, Hematologic/Lymphatic: Negative for swollen nodes, abnormal bleeding, and unusual bruising, 02:52 All other systems are negative, Exam: 02:52 Constitutional: This is a well developed, well nourished patient who is awake, alert, sp3 and in no acute distress. Head/Face: Normocephalic, atraumatic. Eyes: Pupils equal round and reactive to light, extra-ocular motions intact. Lids and lashes normal. Conjunctiva and sclera are non-icteric and not injected. Cornea within normal limits. Periorbital areas with no swelling, redness, or edema. Neck: Trachea midline, no thyromegaly or masses palpated, and no cervical lymphadenopathy. Supple, full range of motion without nuchal rigidity, or vertebral point tenderness. No Meningismus. Chest/axilla: Normal chest wall appearance and motion. Nontender with no deformity. No lesions are appreciated. Cardiovascular: Regular rate and rhythm with a normal S1 and S2. No gallops, murmurs, or rubs. Normal PMI, no JVD. No pulse deficits. Respiratory: Lungs have equal breath sounds bilaterally, clear to auscultation and percussion. No rales, rhonchi or wheezes noted. No increased work of breathing, no retractions or nasal flaring. Abdomen/GI: Soft, non-tender, with normal bowel sounds. No distension or tympany. No guarding or rebound. No evidence of tenderness throughout. Back: No spinal tenderness. No costovertebral tenderness. Full range of motion. Skin: Warm, dry with normal turgor. Normal color with no rashes, no lesions, and no evidence of cellulitis. MS/ Extremity: Pulses equal, no cyanosis. Neurovascular intact. Full, normal range of motion. Neuro: Awake and alert, GCS 15, oriented to person, place, time, and situation. Cranial nerves II-XII grossly intact. Motor strength 5/5 in all extremities. Sensory grossly intact. Cerebellar exam normal. Normal gait. Psych: Awake, alert, with orientation to person, place and time. Behavior, mood, and affect are within normal limits. Vital Signs: 01:53 BP 140 / 86; Pulse 89; Resp 16; Temp 97.4; Pulse Ox 100% on R/A; Weight 68.04 kg; pf1 Height 5 ft. 9 in. ; Pain 10/10; 03:26 BP 148 / 74; Pulse 90; Resp 19; Temp 97.5(TE); Pulse Ox 100% on R/A; Pain 2/10; tm6 01:53 Body Mass Index 22.15 (68.04 kg, 175.26 cm) pf1 01:53 Pain Scale: Adult pf1 03:26 Pain Scale: Adult tm6 MDM: 01:58 Patient medically screened. sp3 02:52 Data reviewed: vital signs, nurses notes, old medical records, lab test result(s). ED sp3 course: Reviewed old medical records including prior CT scans and H\T\P's and ED visits. 23-year-old male with gastroenteritis. Normal labs except mild left shift on CBC which is normal WBC. No other significant findings. Will administer normal saline, Zofran and Reglan for symptomatic control. Discharged home on Cipro and Flagyl as patient has odiferous diarrhea in the ED.. 12/31 01:59 Order name: CBC with Diff; Complete Time: 02:50 sp3 12/31 01:59 Order name: CMP; Complete Time: 02:50 sp3 12/31 01:59 Order name: Lipase; Complete Time: 02:50 sp3 12/31 01:59 Order name: IV Saline Lock; Complete Time: 02:20 sp3 12/31 01:59 Order name: Labs collected and sent; Complete Time: 02:20 sp3 Administered Medications: 02:33 Drug: NS 0.9% IV 1000 ml IV at 1 bolus Per protocol; 1000 mL bolus Route: IV; Rate: 1 tm6 bolus; Site: left antecubital; 02:33 Drug: Ondansetron IVP 4 mg IVP once; over 2 minutes Route: IVP; Site: left antecubital; tm6 02:42 Drug: metoCLOPramide IVP 10 mg IVP once; over 1 to 2 minutes Route: IVP; Site: left tm6 antecubital; 03:26 Drug: Ondansetron IVP 4 mg IVP once; over 2 minutes Route: IVP; Site: left antecubital; tm6 Disposition Summary: 01/01/24 02:54 Discharge Ordered Notes: Location: Home sp3 Condition: Stable sp3 Diagnosis - Gastroenteritis sp3 Followup: sp3 - With: Private Physician - When: Upon discharge from the Emergency Department - Reason: Continuance of care Discharge Instructions: - Discharge Summary Sheet sp3 - Diarrhea, Adult sp3 Forms: - Medication Reconciliation Form sp3 - Antibiotic Education sp3 - Prescription Opioid Use sp3 - Patient Portal Instructions sp3 - Leadership Thank You Letter sp3 Prescriptions: - Cipro 500 mg Oral Tablet - take 1 tablet ORAL route every 12 hours for 10 days; 20 tablet; Refills: 0, sp3 Product Selection Permitted - Flagyl 500 mg Oral Tablet - take 1 tablet ORAL route every 8 hours for 10 days; 30 tablet; Refills: 0, sp3 Product Selection Permitted Signatures: Dispatcher [employer] EDMS Ilsa Alaniz MD MD sp3 Bridgette Toledo RN RN pf1 Norberto Villa RN RN tm6 Corrections: (The following items were deleted from the chart) 02:00 02:00 CBC+H.LAB.BRZ ordered. EDMS EDMS 02:00 02:00 COMPREHENSIVE METABOLIC PANEL+C.LAB.BRZ ordered. EDMS EDMS 02:00 02:00 LIPASE+C.LAB.BRZ ordered. EDMS EDMS 02:30 02:00 Urinalysis+U.LAB.BRZ ordered. EDMS EDMS
[2024-01-01 03:45] VITALS: BP 148/74; TEMP 97.5; O2SAT 100
== END 2024-01-01 03:27 | disposition home or self-care (01) ==
LOC: ER 01:44
DX: K52.9 Noninfective gastroenteritis and colitis, unspecified (principal); F17.210 Nicotine dependence, cigarettes, uncomplicated; Z28.310 Unvaccinated for COVID-19
CPT/HCPCS: 85025; 36415; 83690; 80053; 96375; 96374; 99284; J2765; J2405 ×2; J7030